=== PATIENT | male | born 1955 | race Caucasian/White ===

== ENCOUNTER 2020-10-12 21:00 | Inpatient (IN) | payer MEDICARE, OTHER, SELFPAY ==
[2020-10-12 21:01] VITALS: BP 142/84; PULSE 98; RESP 16; TEMP 36.7; O2SAT 96; BMI 25.0
[2020-10-12 21:19] VITALS: O2SAT 98
--- NOTE | 2020-10-12 21:53 | EKG12_ITS ---
Test Reason : ABD PAIN Blood Pressure : / mmHG Vent. Rate : 097 BPM Atrial Rate : 097 BPM P-R Int : 144 ms QRS Dur : 098 ms QT Int : 368 ms P-R-T Axes : 067 036 092 degrees QTc Int : 467 ms Sinus rhythm with Premature atrial complexes Possible Left atrial enlargement Inferior infarct , age undetermined Abnormal ECG Confirmed by MISBAH MAGALLON, GERALD ([id number]), mapping editor MINERVA COOMBS ([id number]) on 11/06/2020 8:20:29 AM Referred By: MARY Confirmed By:GERALD CRAWLEY MD
--- NOTE | 2020-10-12 21:55 | ED.DCSUM_ITS ---
History of Present Illness Chief Complaint: Cough Informant: Patient Onset: Weeks - 3 Activity at onset: - - gradual in onset Current Severity: Moderate Maximum Severity: Moderate Worsened by: Coughing, Exertion Relieved by: Rest Associated Symptoms: Clear sputum - occasionally, Cough Chest Pain: None Narrative: Patient states he has had occasionally productive cough, shortness of breath, occasional posttussive emesis, feeling fatigued all for about 3 weeks. He saw his PCP within the past week or 2, as an outpatient testing, he saw the physician at the ER at [place] this morning, states that his doctor told him he may have bronchitis, the ER doctor told him there was no way he could have bronchitis, he has no prescriptions from either 1 and no one tested him for Covid. He is here seeking a third opinion. He denies any leg pain, swelling, orthopnea. No loss of taste or smell. No known exposure to Covid cases. He has history of coronary disease and states he has many stents and takes Brilinta but no anticoagulants. He denies any pleuritic chest discomfort, or chest pain at all. - Past Medical History (1) CAD (coronary artery disease) Status: Chronic (2) Factor V Leiden Status: Chronic (3) Ischemic cardiomyopathy Status: Chronic (4) Paroxysmal atrial fibrillation Status: Chronic Past Medical History - Allergies and Home Meds Allergies/Adverse Reactions: Allergies No Known Allergies Allergy (Verified 10/12/20 21:04) Primary Care Physician: Keara Murphy DO [Primary Care Provider] - Surgical History: - - More than 20 coronary stents according to patient Lives: Alone, Spouse/ Significant Other Smoking Status: Never smoker Review of Systems General: Reports: Malaise. Denies: Chills, Fever, Sweats Eyes: Denies: Visual changes - bilaterally, Diplopia ENT: Denies: Bilateral ear pain, Rhinorrhea, Sore throat Cardiovascular: Denies: Chest pain, Palpitations Respiratory: Reports: Dyspnea, Cough, Sputum, Dyspnea on exertion. Denies: Orthopnea Gastrointestinal: Reports: Vomiting - Posttussive only. Denies: Abdominal pain, Nausea, Diarrhea, Melena, Hematochezia Genitourinary: Denies: Dysuria, Hematuria, Frequency Musculoskeletal: Denies: Myalgias, Swelling, Extremity Pain Skin: Denies: Rash, Wounds Neurological: Denies: Headache, Weakness, Numbness Physical Exam Vital Signs/Narrative: Vital Signs Temp Pulse Resp BP Pulse Ox 10/12/20 21:01 98.0 F 98 16 142/84 H 96 Inital Vital Signs reviewed: Yes General: Well nourished, Well developed, No Acute Distress Head: Normocephalic, Atraumatic Eyes: Perrl, EOMI ENT: Moist mucous membranes, No rhinorrhea Neck: Supple, Nontender, No lymphadenopathy Cardiovascular: Regular rate, Regular rhythm, No murmurs Respiratory: No distress, CTA bilaterally, Chest nontender Abdomen: Soft, Nontender, Nondistended, Normal bowel sounds Back: Nontender, Normal Inspection Extremities: Nontender, No edema. Negative for: Calf Tenderness Skin: Normal color, No rash, No Trauma Neurological: Alert, Oriented x3, Cranial nerves II-XII grossly intact, Normal Strength, Normal Sensation, Normal Gait Psychological: Normal affect, Normal Mood Diagnostic/Tx/Re-eval Impressions Chest X-Ray 10/12/20 22:10 IMPRESSION: No acute findings. Electronically Signed: Jennifer Brewer MD at 23:00 EST Tel , Service support , 10/12/20 22:10 Chest 1 View (Portable) [RAD] Stat Laboratory Results 10/12/20 10/12/20 10/12/20 22:35 22:35 22:35 WBC 4.9 RBC 5.00 Hgb 15.0 Hct 46.5 MCV 93.0 MCH 30.0 MCHC 32.3 RDW Std Deviation 43.3 RDW Coeff of Chris 12.7 Plt Count 160 MPV 9.6 Immature Gran % (Auto) 0.400 Neut % (Auto) 66.1 Lymph % (Auto) 26.8 [place] % (Auto) 6.1 Eos % (Auto) 0.4 Baso % (Auto) 0.2 Absolute Neuts (auto) 3.3 Absolute Lymphs (auto) 1.32 Nucleated RBC % 0 Sodium 136 Potassium 3.6 Chloride 102 Carbon Dioxide 25.0 Anion Gap 9 BUN 20 H Creatinine 1.66 H Estim Creat Clear Calc 42.92 Est GFR (MDRD) Af Amer 54 L Est GFR (MDRD) Non-Af 44 L BUN/Creatinine Ratio 12.0 Glucose 280 H Calcium 8.5 Total Bilirubin 0.70 AST 13 L ALT 15 L Alkaline Phosphatase 106 Troponin I 0.847 H* B-Natriuretic Peptide 757.5 H Total Protein 7.4 Albumin 3.5 Globulin 3.9 Albumin/Globulin Ratio 0.9 - Rhythm Strip Rhythm Strip: Sinus Rhythm Rate: 95 Ectopy: None - EKG Initial EKG Interpretation: Sinus Rhythm, No Acute Injury Pattern, Non-Specific ST Changes - diffusely, - - old inferior infarct Prior: No Prior - Medical Decision Making Patient very poor historian and has never been to this hospital according to available records. He was accessed via [employer] to view outside records, which include an abnormal troponin earlier today at 0.55, now 0.8 here, and he has a history of factor V Leiden and paroxysmal atrial fibrillation which is likely why he is on Xarelto. He had a nuclear stress test in July that showed an old infarct and a small area that appeared to be a branch of mild acute ischemia but was otherwise unremarkable with an EF of 35% approximately. He currently is having no chest discomfort. We changed his outpatient Covid to a rapid which is still pending. I discussed with cardiology. He advised cycling enzymes, giving him aspirin which is done in the ER, holding Xarelto, and they will consult in the morning. ED Disposition - Plan for ED Patient: Disposition: Acute Care Hospital [facility] Diagnosis: Elevated troponin I level, Dyspnea Referrals: Keara Murphy DO [Primary Care Provider] -
--- NOTE | 2020-10-12 21:59 | ED.RN ---
NO OLD EKGS IN MUSE
[2020-10-12 22:00] VITALS: BP 112/79; PULSE 99; RESP 35; TEMP 36.5; O2SAT 94
--- NOTE | 2020-10-12 22:10 | RAD_ITS ---
STUDY: X-RAY CHEST REASON FOR EXAM: Male, 65 years old. cough TECHNIQUE: Single AP portable view of the chest. COMPARISON: None. FINDINGS: The lungs are clear and expanded. There is no demonstrated pleural abnormality. Normal size heart. Left coronary stent is noted. Normal mediastinum and hollie. Normal visualized pulmonary arteries. Normal visualized aortic arch and descending thoracic aorta. Normal visualized thoracic spine. Normal visualized ribs, clavicles, and shoulders. There is no demonstrated abnormality of the visualized soft tissue structures of the upper abdomen. RAD/Chest 1 View (Portable) IMPRESSION: No acute findings. Electronically Signed: Jennifer Brewer MD at 23:00 EST Tel , Service support ,
[2020-10-12 22:46] LABS: Absolute Lymphocyte Count 1.32 X10^3/uL (0.83-4.51); Absolute Neutrophil Count 3.3 X10^3/uL (2.0-7.7); Basophil# 0.01 X10^3/uL; Basophil% 0.2 % (0-1); Eosinophil# 0.02 X10^3/uL; Eosinophils% 0.4 % (0-5); Hematocrit 46.5 % (40-54); Lymphocyte # 1.32 X10^3/ul (4.0); Lymphocyte % 26.8 % (19-41); Mean Corp Hgb Conc 32.3 g/dL (32-36); Mean Platelet Vol. 9.6 fl (6.2-12.0); Monocyte% 6.1 % (0-10); NRBC Flagged by Analyzer 0 % (0-5); Neutrophil # 3.25 X10^3/uL (2.7-7.7); Neutrophil % 66.1 % (47-70); Platelet Count 160 K/mm3 (150-450); RBC Distribution Width CV 12.7 % (11.6-14.6); RBC Distribution Width SD 43.3 fl (35.1-43.9); White Blood Count 4.9 K/mm3 (4.4-11.0)
[2020-10-12 23:00] VITALS: BP 132/80; PULSE 99; RESP 36; TEMP 36.7; O2SAT 93
[2020-10-12 23:08] LABS: BNP,B-Type NATRIURETIC PEPTIDE 757.5 pg/mL (0-100)
[2020-10-12 23:31] LABS: ALB/GLOB Ratio 0.9 RATIO (0.9-2.4); AST(SGOT) 13 U/L (15-37); Alanine Aminotransfer ALT/SGPT 15 U/L (16-61); Albumin, Serum 3.5 g/dL (3.2-5.0); Alkaline Phosphatase 106 U/L (45-117); Anion Gap 9 (5-15); BUN 20 mg/dL (7-18); Calcium,Total 8.5 mg/dL (8.5-10.1); Chloride 102 mmol/L (98-107); Creatinine, Serum 1.66 mg/dL (0.70-1.30); EST Glomerular Filtration Rate 44 mL/min (>60); Est Glom Filt Rate - Afr Amer 54 mL/min (>60); Estimated Creatinine Clearance 42.92 ml/min; Globulin 3.9 g/dL (2.2-4.2); Glucose 280 mg/dL (74-106); Potassium 3.6 mmol/L (3.5-5.1); Protein, Total 7.4 g/dL (6.4-8.2); Sodium Level 136 mmol/L (136-145)
[2020-10-13] VITALS (22 sets, daily range): BP systolic 85–136; BP diastolic 53–89; PULSE 64–159; RESP 18–32; TEMP 35.6–38; O2SAT 92–100; BMI 30.2
--- NOTE | 2020-10-13 00:01 | PCM.HP.STD ---
Problem List (1) SARS (severe acute respiratory syndrome) Status: Acute (2) COVID-19 Status: Acute (3) Heart failure Status: Acute (4) CAD (coronary artery disease) Status: Chronic (5) Elevated troponin I level Status: Acute (6) Dyspnea Status: Acute (7) Factor V Leiden Status: Chronic (8) Ischemic cardiomyopathy Status: Chronic (9) Paroxysmal atrial fibrillation Status: Chronic History of Present Illness Date of Admission: 10/13/20 Chief Complaint: SOB The patient is a 65 year old M with a significant history paroxysmal A. fib; factor V Leiden deficiency; activated protein C resistance; CAD status post 29 coronary stent; two stents in cerebral vessels; CKD stage III; sleep apnea; and diabetes mellitus who presents emergency department with 3 months history of persistent shortness of breath. His shortness of breath is with mild exertion. He reports transiently blacking out because of shortness of breath. Associated with his symptoms as a nonproductive cough for about 4 weeks. Further patient has orthopnea; and fatigue. He denies paroxysmal nocturnal dyspnea. He denies any swelling or change in weight. Patient of had to a Covid test with the last test about a month ago. Earlier on the same day of presentation patient went to [facility]. He was unsatisfied with the care there ([facility]) and also unhappy that a Covid test was not done so he came to our emergency department. Reportedly patient was supposed to have his gallbladder taken out but he was told that it is too risky for him to do the operation. Past Medical History Past Medical History (Chronic Problems): Chronic Problems CAD (coronary artery disease) (Chronic) Factor V Leiden (Chronic) Ischemic cardiomyopathy (Chronic) Paroxysmal atrial fibrillation (Chronic) Allergies No Known Allergies Allergy (Verified 10/12/20 21:04) Home Medications: Ambulatory Orders Medication Instructions Recorded Atorvastatin Calcium [Lipitor] 80 mg PO QHS 10/12/20 Metoprolol(XL)Succ [Toprol Xl 25 mg PO DAILY 10/12/20 (Beta Shannon)] Ranolazine [Ranexa] 1,000 mg PO BID 10/12/20 Rivaroxaban [Xarelto] 20 mg PO DAILY 10/12/20 Sacubitril/Valsartan 24/26 mg 0.5 tab PO BID 10/12/20 [Entresto 24 mg-26 mg Tablet] Ticagrelor [Brilinta] 90 mg PO BID 10/12/20 Insulin Glargine,Hum.rec.anlog 50 units [place] QHS 10/13/20 [Lantus] Insulin Lispro [Humalog KwikPen] See Protocol MD ACHS 10/13/20 Surgical History: - - 29 coronary stents in the past and 2 stents in cerebral vessel Lives: Alone, Spouse/ Significant Other Smoking Status: Never smoker Tobacco Use: Non-smoker - *Family History Maternal History Items: - - His mother was an alcoholic. Does not know any further maternal history. Paternal History Items: - - Denies knowledge of paternal medical history Review of Systems Constitutional: Reports: Anorexia, Chills, Malaise, Weakness, Fatigue. Denies: Fever, Weight Change HEENT: Denies: Head Aches, Sinus Congestion, Sinus Drainage Cardiovascular: Denies: Chest Pain, Palpitations Respiratory: Reports: Cough, Shortness of breath upon exertion Gastrointestinal: Denies: Abdominal Pain, Nausea, Vomiting Genitourinary: Denies: Dysuria Musculoskeletal: Denies: Joint Pain, Joint Tenderness Skin: Denies: Rash, Wounds Neurological: Denies: Numbness, Tingling, Focal weakness Psychiatric: Denies: Anxiety, Depression, Homicidal Ideations, Suicidal Ideations Hematologic/ Lymphatic: Denies: Easy Bruising, Easy Bleeding VTE Information - Inpt Only VTE Present on Admission: No VTE Mechan Device Prophylaxis: None VTE Pharm Prophylaxis ordered?: Yes Patient Problems: Active and Suspected Problems Elevated troponin I level (Acute) Dyspnea (Acute) SARS (severe acute respiratory syndrome) (Acute) COVID-19 (Acute) Heart failure (Acute) - Physical Exam Vitals/I&O's: Vital Signs Temp Pulse Resp BP Pulse Ox 98.1 F 99 36 H 132/80 H 93 10/12/20 23:00 10/12/20 23:00 10/12/20 23:00 10/12/20 23:00 10/12/20 23:00 Oxygen Delivery Method Room Air Weight: 74.843 kg Body Mass Index (BMI) 25.0 General: Alert, Oriented x3, Cooperative HEENT: Atraumatic, PERRLA, EOMI, Normocephalic Neck: Supple, No JVD, Negative Carotid Bruits Lungs: Clear to auscultation, Short of Breath, Tachypneic, Using Accessory Muscles, - - Conversational dyspnea Cardiovascular: Regular rate, Normal S1, Normal S2, No murmurs Abdomen: Bowel Sounds Present, Soft, Non Tender Extremities: No edema, Capillary Refill Less than 3 Seconds Skin: No rashes, No breakdown Musculoskeletal: No Tenderness to Palpation of Joints or Extremities Neurological: Cranial nerves II-XII grossly intact Psych/Mental Status: Anxious Laboratory Results 10/12/20 21:56: COVID-19 (CORTEZ) Pending 10/12/20 22:35: WBC 4.9, RBC 5.00, Hgb 15.0, Hct 46.5, MCV 93.0, MCH 30.0, MCHC 32.3, RDW Std Deviation 43.3, RDW Coeff of Chris 12.7, Plt Count 160, MPV 9.6, Immature Gran % (Auto) 0.400, Neut % (Auto) 66.1, Lymph % (Auto) 26.8, [place] % (Auto) 6.1, Eos % (Auto) 0.4, Baso % (Auto) 0.2, Absolute Neuts (auto) 3.3, Absolute Lymphs (auto) 1.32, Nucleated RBC % 0 10/12/20 22:35: Sodium 136, Potassium 3.6, Chloride 102, Carbon Dioxide 25.0, Anion Gap 9, BUN 20 H, Creatinine 1.66 H, Estim Creat Clear Calc 42.92, Est GFR (MDRD) Af Amer 54 L, Est GFR (MDRD) Non-Af 44 L, BUN/Creatinine Ratio 12.0, Glucose 280 H, Calcium 8.5, Total Bilirubin 0.70, AST 13 L, ALT 15 L, Alkaline Phosphatase 106, Troponin I 0.847 H*, Total Protein 7.4, Albumin 3.5, Globulin 3.9, Albumin/Globulin Ratio 0.9 10/12/20 22:35: B-Natriuretic Peptide 757.5 H Assessment/Plan All Active Problems Elevated troponin I level (Acute) Dyspnea (Acute) SARS (severe acute respiratory syndrome) (Acute) COVID-19 (Acute) Heart failure (Acute) SARS COVID-19 Rapid antigen at emergency department was positive. We'll get a PCR as his symptoms is been going on for 3 months. Impression of chest x-ray by radiologist: No acute findings. Actual chest x-ray was independently interpreted: Mildly enlarged cardiac silhouette hold. Cephalization with engorgement of pulmonary vessels and mild opacity right lower lung field. D-dimer returned mildly elevated. Because of elevated troponin and patient with multiple stent emergent department doctor discussed the case with a threshing department supervisor who recommended that Xarelto be discontinued. Will start patient on heparin drip while off Xarelto. Of note patient has a history of activated protein C resistance; and factor V Leiden deficiency.. Procalcitonin, strep pneumonia antigen and Legionella urine antigen ordered. Decadron IV x1 and p.o. daily ordered. Consider infectious disease consult. Tylenol for fever and Mucinex for cough ordered. Acute exacerbation of systolic heart failure Review of community records on [facility] that patient had a cardiac stress test on 08/09/2020. The cardiac stress test was remarkable for left ventricular ejection fraction estimated at 31% at rest and 25% post stress With his 3 months as symptoms is possible the patient is in acute exacerbation of heart failure. Daily weights ordered. Strict intake and output. Fluid restriction of 1,500 MLS per day. Lasix 40 mg IV x1 and 20 mg IV twice daily. Supplement potassium. Metoprolol continued Entresto continued Non-ST elevation SC His troponin at outside hospital ED earlier in the day of presentation was 0.55. His troponin at our hospital was 0.847 on presentation. Will trend troponin. Cardiology consult. We will keep patient n.p.o. Brilinta continued. Per cardiology recommendation aspirin 324 mg was given the emergency department. Daily baby aspirin ordered. Ranexa continued A. fib with RVR Because of the ED presentation meds home metoprolol. Metoprolol 25 mg p.o. x1. Cardizem 10 mg IV x1. Continue metoprolol 25 mg p.o. daily. CKD stage III His creatinine on same day of presentation at outside hospital was 1.27. His creatinine on presentation at our hospital was 1.66. His creatinine on 08/08/2020 was 1.53. Likely cardiorenal syndrome. BUN is 20. Prerenal injury from intravascular dehydration. Started on Lasix. Trend BMP. Adjust Lasix as necessary. DM Blood glucose elevated Adjust home basal and correction scale insulin while n.p.o. DVT prophylaxis Heparin drip as above. Inpatient E&M: 83535 Init Hosp L3
[2020-10-13] MEDS: Aspirin 81 MG TAB.CHEW 324 MG PO (00:12)
--- NOTE | 2020-10-13 01:17 | EKG12_ITS ---
Test Reason : CP ADMIT Blood Pressure : / mmHG Vent. Rate : 087 BPM Atrial Rate : 087 BPM P-R Int : 156 ms QRS Dur : 102 ms QT Int : 424 ms P-R-T Axes : -02 -09 103 degrees QTc Int : 510 ms Normal sinus rhythm Inferior infarct , age undetermined Prolonged QT Poor R wave progression Abnormal ECG Confirmed by MISBAH MAGALLON, GERALD ([id number]), editorial assistant GAVIN CORRAL ([id number]) on 10/18/2020 1:16:17 PM Referred By: DR PADILLA Confirmed By:GERALD CRAWLEY MD
[2020-10-13] MEDS: Furosemide 40 MG/4 ML Vial IV (01:28)
[2020-10-13] MEDS: 0.9% Saline Lock 10 ML Syringe IV ×6 (01:28→23:05)
[2020-10-13] MEDS: Acetaminophen 325 MG Tablet 650 MG PO (01:28)
[2020-10-13 01:40] LABS: D-Dimer Quantitative (DVT/PE) 0.85 FEU/ug/m (0.27-0.49)
[2020-10-13 01:48] LABS: Procalcitonin 0.06 ng/mL (0.00-0.09)
[2020-10-13] MEDS: dexAMETHasone 10 MG/ML Vial 6 MG IV (03:00)
[2020-10-13] MEDS: Metoprolol(XL)Succ 25 MG Tablet PO ×2 (03:23→13:41)
--- NOTE | 2020-10-13 03:35 | EKG12_ITS ---
Test Reason : AFIB Blood Pressure : / mmHG Vent. Rate : 118 BPM Atrial Rate : 394 BPM P-R Int : 000 ms QRS Dur : 104 ms QT Int : 392 ms P-R-T Axes : 000 001 111 degrees QTc Int : 549 ms Atrial fibrillation Inferior infarct , age undetermined Poor R wave progression Nonspecific T wave abnormality Abnormal ECG Confirmed by MISBAH MAGALLON, GERALD ([id number]), editor index GAVIN CORRAL ([id number]) on 10/18/2020 1:17:05 PM Referred By: DR PADILLA Confirmed By:GERALD CRAWLEY MD
[2020-10-13] MEDS: dilTIAZem 25 MG/5 ML Vial 10 MG IV BOLUS (04:00)
[2020-10-13] MEDS: guaiFENesin 1,200 MG Tablet 1200 MG PO ×3 (04:04→23:04)
[2020-10-13] MEDS: Heparin Injection (Vial) 5,000 UNIT/ML VIAL 6000 UNIT IV (04:11)
[2020-10-13] MEDS: HEPARIN/D5w 25,000 UNITS 25,000 UNITS/250 ML IV.SOLN. 12 UNITS IV (04:11)
[2020-10-13 06:12] LABS: Absolute Lymphocyte Count 1.01 X10^3/uL (0.83-4.51); Absolute Neutrophil Count 3.5 X10^3/uL (2.0-7.7); Eosinophil# 0.01 X10^3/uL; Eosinophils% 0.2 % (0-5); Hematocrit 46.7 % (40-54); Hemoglobin 15.1 g/dL (13.0-16.5); Lymphocyte # 1.01 X10^3/ul (4.0); Lymphocyte % 20.9 % (19-41); Mean Corp Hgb Conc 32.3 g/dL (32-36); Mean Corpuscular Hgb 29.9 pg (27.0-32.0); Mean Corpuscular Volume 92.5 fL (80-94); Mean Platelet Vol. 9.5 fl (6.2-12.0); Monocyte# 0.28 X10^3/uL; Monocyte% 5.8 % (0-10); NRBC Flagged by Analyzer 0 % (0-5); Neutrophil # 3.52 X10^3/uL (2.7-7.7); Neutrophil % 72.7 % (47-70); Platelet Count 151 K/mm3 (150-450); RBC Distribution Width CV 12.7 % (11.6-14.6); RBC Distribution Width SD 43.6 fl (35.1-43.9); Red Blood Count 5.05 M/mm3 (4.6-6.2); White Blood Count 4.8 K/mm3 (4.4-11.0)
[2020-10-13] MEDS: Insulin Lispro 100 UNIT/ML INSULN.PEN SC ×3 (06:50→18:00)
[2020-10-13 07:10] LABS: Bedside Glucose 404 mg/dL (70-110)
[2020-10-13 09:25] LABS: ALB/GLOB Ratio 0.9 RATIO (0.9-2.4); AST(SGOT) 11 U/L (15-37); Alanine Aminotransfer ALT/SGPT 13 U/L (16-61); Albumin, Serum 3.3 g/dL (3.2-5.0); Alkaline Phosphatase 102 U/L (45-117); Anion Gap 13 (5-15); BUN 22 mg/dL (7-18); BUN/Creat Ratio 13.3 RATIO (10-20); Calcium,Total 8.3 mg/dL (8.5-10.1); Chloride 102 mmol/L (98-107); Creatinine, Serum 1.66 mg/dL (0.70-1.30); EST Glomerular Filtration Rate 44 mL/min (>60); Est Glom Filt Rate - Afr Amer 54 mL/min (>60); Estimated Creatinine Clearance 42.92 ml/min; Globulin 3.7 g/dL (2.2-4.2); Glucose 389 mg/dL (74-106); Potassium 3.8 mmol/L (3.5-5.1); Sodium Level 135 mmol/L (136-145)
--- NOTE | 2020-10-13 10:14 | PCM.CONS.C ---
Reason for Consult Date of Consultation: 10/13/20 Reason for Consultation: Elevated T-I History of Present Illness: The patient is a 65 year old M [who presented to the hospital with 3 weeks of shortness of breath.He has prior history of coronary artery disease status post multiple stents. Due to his Covid positive diagnosis history was obtained from the medical records and also from the patient over the phone. I did not see the patient in person or do a physical examination.Patient follows with an outside motorized squad commanding officer. He was found to be Covid positive and also his D-dimer and troponin were elevated. His troponin is already coming down. Patient states that prior to PCI in the past he mainly had shortness of breath. However this morning he is feeling better. He did go into A. fib and then converted to sinus rhythm this morning. Overall patient states that he is feeling better than at the time of his admission.] Past Medical History Allergies/Adverse Reactions: Allergies No Known Allergies Allergy (Verified 10/12/20 21:04) Home Medications: Ambulatory Orders Medication Instructions Recorded Atorvastatin Calcium [Lipitor] 80 mg PO QHS 10/12/20 Metoprolol(XL)Succ [Toprol Xl 25 mg PO DAILY 10/12/20 (Beta Shannon)] Ranolazine [Ranexa] 1,000 mg PO BID 10/12/20 Rivaroxaban [Xarelto] 20 mg PO DAILY 10/12/20 Sacubitril/Valsartan 24/26 mg 0.5 tab PO BID 10/12/20 [Entresto 24 mg-26 mg Tablet] Ticagrelor [Brilinta] 90 mg PO BID 10/12/20 Furosemide [Lasix] 20 mg PO DAILY 10/13/20 Insulin Glargine,Hum.rec.anlog 50 units [place] QHS 10/13/20 [Lantus] Insulin Lispro [Humalog KwikPen] See Protocol [place] ACHS 10/13/20 Past Medical History (Chronic Problems): Chronic Problems CAD (coronary artery disease) (Chronic) Factor V Leiden (Chronic) Ischemic cardiomyopathy (Chronic) Paroxysmal atrial fibrillation (Chronic) Surgical History: - - 29 coronary stents in the past and 2 stents in cerebral vessel - *Family History Maternal History Items: - - His mother was an alcoholic. Does not know any further maternal history. Paternal History Items: - - Denies knowledge of paternal medical history Lives: Alone, Spouse/ Significant Other Smoking Status: Never smoker Tobacco Use: Non-smoker Subjectve: Consultation was provided reviewing information in the medical records and talking to the patient over the phone. Physical examination was not performed. Objective: Vital Signs Temp Pulse Resp BP Pulse Ox 96.1 F L 73 26 H 96/64 100 10/13/20 07:04 10/13/20 07:04 10/13/20 07:04 10/13/20 07:04 10/13/20 07:04 Oxygen Flow Rate (L/min) 2 Oxygen Delivery Method Nasal Cannula Weight: 196 lb 3.382 oz Body Mass Index (BMI) 30.2 Intake and Output for Last 24 Hours 10/11/20 10/12/20 10/13/20 23:59 23:59 23:59 Intake Total 370 / 370 Output Total 400 / 400 Balance -30 / -30 10/12/20 22:35: WBC 4.9, RBC 5.00, Hgb 15.0, Hct 46.5, MCV 93.0, MCH 30.0, MCHC 32.3, Plt Count 160, MPV 9.6, Immature Gran % (Auto) 0.400, Neut % (Auto) 66.1, Lymph % (Auto) 26.8, [place] % (Auto) 6.1, Eos % (Auto) 0.4, Baso % (Auto) 0.2, Absolute Neuts (auto) 3.3, Nucleated RBC % 0 10/12/20 22:35: Sodium 136, Potassium 3.6, Chloride 102, Carbon Dioxide 25.0, Anion Gap 9, BUN 20 H, Creatinine 1.66 H, Est GFR (MDRD) Af Amer 54 L, Est GFR (MDRD) Non-Af 44 L, BUN/Creatinine Ratio 12.0, Glucose 280 H, Calcium 8.5, Total Bilirubin 0.70, Troponin I 0.847 H* 10/12/20 22:35: B-Natriuretic Peptide 757.5 H 10/12/20 22:35: D-Dimer Quant (PE/DVT) 0.85 H* 10/12/20 22:35: APTT 28.0 10/13/20 02:50: Troponin I 0.751 H* 10/13/20 05:50: WBC 4.8, RBC 5.05, Hgb 15.1, Hct 46.7, MCV 92.5, MCH 29.9, MCHC 32.3, Plt Count 151, MPV 9.5, Immature Gran % (Auto) 0.400, Neut % (Auto) 72.7 H, Lymph % (Auto) 20.9, [place] % (Auto) 5.8, Eos % (Auto) 0.2, Baso % (Auto) 0.0, Absolute Neuts (auto) 3.5, Nucleated RBC % 0 10/13/20 05:50: Sodium 135 L, Potassium 3.8, Chloride 102, Carbon Dioxide 20.0 L, Anion Gap 13, BUN 22 H, Creatinine 1.66 H, Est GFR (MDRD) Af Amer 54 L, Est GFR (MDRD) Non-Af 44 L, BUN/Creatinine Ratio 13.3, Glucose 389 H, Calcium 8.3 L, Total Bilirubin 0.70 10/13/20 05:50: Troponin I 0.770 H* Rhythm: EKG: ECHO: Stress Test: Cardiac Cath: PCI: CT Surgery: Holter monitor: EPS: PPM: CXR: Chest CT Scan: Assessment/Plan 1. Elevated troponin: This could be related to progression of his underlying CAD or Covid or combination of the 2. In addition patient's D-dimer is also elevated. Prior to PCI in the past patient apparently had more shortness of breath and chest pain. However his chest shortness of breath has improved since admission. His troponin is also trending down. I think will be reasonable to treat this medically without proceeding with coronary angiography at this time. We can consider coronary angiography in about 2 weeks if patient is still symptomatic. We can stop his aspirin and restart Xarelto and Brilinta. 2. Atrial fibrillation: Continue metoprolol and Xarelto. Patient is currently in sinus rhythm. 3. Factor V [place]: Continue Xarelto 4. LV dysfunction: Patient shortness of breath is better. I will defer the timing of switching from IV Lasix to p.o. Lasix to the patient's primary team. Continue Entresto and Toprol-XL.
[2020-10-13 10:48] LABS: Partial Thromboplast Time 128.8 Seconds (24.1-36.2)
[2020-10-13] MEDS: SACUBITRIL/VALSARTAN 24/26 MG TABLET 0.5 EACH PO ×2 (10:52→23:04)
[2020-10-13] MEDS: Furosemide 20 MG/2 ML VIAL IV ×2 (10:53→18:25)
[2020-10-13] MEDS: Ranolazine 500 MG Tablet 1000 MG PO ×2 (10:53→23:03)
[2020-10-13] MEDS: Aspirin E.C. 81 MG Tablet PO (10:53)
[2020-10-13] MEDS: TICAGRELOR 90 MG TABLET PO ×2 (10:53→23:01)
[2020-10-13 12:46] LABS: Bedside Glucose 497 mg/dL (70-110)
--- NOTE | 2020-10-13 13:15 | CASEMGMT ---
LIZETT HOLCOMB ASSESSMENT COVID-19 +. Pt in isolation precautions. RN AICHA placed call to pt's room for initial transition planning/care coordination assessment. LIZETT HOLCOMB introduced self and role at [facility]. Pt voices understanding and consents to assessment at this time. Pt is A/O at this time and answers all questions appropriately. Care providers, pharmacy, and demographics verified/updated at this time. PCP: Dr Murphy Specialists: Dr Caputo--palliative care nurse in [place], [place] Preferred Pharmacy: [facility] Insurance: [facility], [place] [employer] [place] (not listed on demographics). Call placed to [facility] and made aware pt states has [employer] [place] as secondary insurance. She states she will contact pt to get further info from him. Prescription Benefit: Yes. [employer] Living Will/HPOA: Pt does not currently have LW/HCPOA and declines info at this time. Pt made aware that he can contact SW as an out-pt and make appt in the future if he decides he would like to talk with someone about this or would like to utilize [facility] social work for advanced directive completion. LNOK: 4 kids. Daughter, Kaia Szymanski, listed on demographics Living Arrangements: Lives alone in one-story home w/no steps to enter. Independent w/ADL's and IADL's. Pt states his daughter can get his groceries/supplies, medications as needed while he is quarantining. Transportation: Pt states drives self and states no transportation concerns at this time. Daughter, Kaia, will take him home @ discharge. DME: Denies using any DME and denies needs. No home O2. Pt states does not have preference of DME company if needs O2 @ discharge. HHC/SNF: No history of either and no needs identified. Pt wishes to return home and states has no concerns with going home at time of discharge. CM to follow for home oxygen needs and any discharge planning/needs. Pt voices no concerns/needs at this time. Advised pt to ask for CM if any questions/concerns/needs arise. Voices understanding. PLAN: Home Follow for Home O2 needs at discharge. Green sheet placed on chart w/Home O2 set up instructions if pt qualifie for O2 @ dc. Ariana BARRIENTOS RN, CM
--- NOTE | 2020-10-13 15:57 | CON.PCM_ITS ---
Problem List (1) COVID-19 Status: Acute Reason for Consult: covid Consulted by: Dr. Saez History of Present Illness: The patient is a 65 year old M with c/o 3 months of dyspnea, then about 1.5 weeks of worsening cough, dyspnea, diarrhea, not feeling well, loss of appetite. Lives alone, no sick contacts. Admitted here, covid (+), started on hep gtt, dex, and remdesivir. Full ROS performed and neg except as noted above. - Medical History Past Medical History (Chronic Problems): Chronic Problems CAD (coronary artery disease) (Chronic) Factor V Leiden (Chronic) Ischemic cardiomyopathy (Chronic) Paroxysmal atrial fibrillation (Chronic) Allergies/Adverse Reactions: Allergies No Known Allergies Allergy (Verified 10/12/20 21:04) Home Medications: Ambulatory Orders Medication Instructions Recorded Atorvastatin Calcium [Lipitor] 80 mg PO QHS 10/12/20 Metoprolol(XL)Succ [Toprol Xl 25 mg PO DAILY 10/12/20 (Beta Shannon)] Ranolazine [Ranexa] 1,000 mg PO BID 10/12/20 Rivaroxaban [Xarelto] 20 mg PO DAILY 10/12/20 Sacubitril/Valsartan 24/26 mg 0.5 tab PO BID 10/12/20 [Entresto 24 mg-26 mg Tablet] Ticagrelor [Brilinta] 90 mg PO BID 10/12/20 Furosemide [Lasix] 20 mg PO DAILY 10/13/20 Insulin Glargine,Hum.rec.anlog 50 units SC QHS 10/13/20 [Lantus] Insulin Lispro [Humalog KwikPen] See Protocol TX ACHS 10/13/20 - Social History Tobacco Use: non-smoker Vital Signs Temp Pulse Resp BP Pulse Ox 97.9 F 71 18 114/69 95 10/13/20 13:31 10/13/20 13:41 10/13/20 13:31 10/13/20 13:41 10/13/20 15:30 Oxygen Flow Rate (L/min) 2 Oxygen Delivery Method Nasal Cannula Weight: 89 kg Body Mass Index (BMI) 30.2 Microbiology Past 72 Hours 10/13/20 04:12 Respiratory Panel (PCR) - Final Mucosa - Nose 10/13/20 02:45 Legionella Antigen - Final Interface Orders 10/13/20 02:45 Streptococcus pneumoniae Antigen (M - Final Interface Orders 10/12/20 23:59 SARS-CoV-2 Antigen (Rapid) - Final Mucosa - Nose SARS-CoV-2 (COVID 19) Laboratory Tests Past 24 Hrs 10/12/20 10/12/20 10/12/20 21:56 22:35 22:35 WBC 4.9 RBC 5.00 Hgb 15.0 Hct 46.5 MCV 93.0 MCH 30.0 MCHC 32.3 RDW Std Deviation 43.3 RDW Coeff of Chris 12.7 Plt Count 160 MPV 9.6 Immature Gran % (Auto) 0.400 Neut % (Auto) 66.1 Lymph % (Auto) 26.8 [place] % (Auto) 6.1 Eos % (Auto) 0.4 Baso % (Auto) 0.2 Absolute Neuts (auto) 3.3 Absolute Lymphs (auto) 1.32 Nucleated RBC % 0 APTT D-Dimer Quant (PE/DVT) Sodium 136 Potassium 3.6 Chloride 102 Carbon Dioxide 25.0 Anion Gap 9 BUN 20 H Creatinine 1.66 H Estim Creat Clear Calc 42.92 Est GFR (MDRD) Af Amer 54 L Est GFR (MDRD) Non-Af 44 L BUN/Creatinine Ratio 12.0 Glucose 280 H Calcium 8.5 Total Bilirubin 0.70 AST 13 L ALT 15 L Alkaline Phosphatase 106 Troponin I 0.847 H* B-Natriuretic Peptide Total Protein 7.4 Albumin 3.5 Globulin 3.9 Albumin/Globulin Ratio 0.9 Procalcitonin COVID-19 ([facility]) Cancelled 10/12/20 10/12/20 10/12/20 22:35 22:35 22:35 WBC RBC Hgb Hct MCV MCH MCHC RDW Std Deviation RDW Coeff of Chris Plt Count MPV Immature Gran % (Auto) Neut % (Auto) Lymph % (Auto) [place] % (Auto) Eos % (Auto) Baso % (Auto) Absolute Neuts (auto) Absolute Lymphs (auto) Nucleated RBC % APTT D-Dimer Quant (PE/DVT) 0.85 H* Sodium Potassium Chloride Carbon Dioxide Anion Gap BUN Creatinine Estim Creat Clear Calc Est GFR (MDRD) Af Amer Est GFR (MDRD) Non-Af BUN/Creatinine Ratio Glucose Calcium Total Bilirubin AST ALT Alkaline Phosphatase Troponin I B-Natriuretic Peptide 757.5 H Total Protein Albumin Globulin Albumin/Globulin Ratio Procalcitonin 0.06 COVID-19 ([facility]) 10/12/20 10/13/20 10/13/20 22:35 02:50 04:12 WBC RBC Hgb Hct MCV MCH MCHC RDW Std Deviation RDW Coeff of Chris Plt Count MPV Immature Gran % (Auto) Neut % (Auto) Lymph % (Auto) [place] % (Auto) Eos % (Auto) Baso % (Auto) Absolute Neuts (auto) Absolute Lymphs (auto) Nucleated RBC % APTT 28.0 D-Dimer Quant (PE/DVT) Sodium Potassium Chloride Carbon Dioxide Anion Gap BUN Creatinine Estim Creat Clear Calc Est GFR (MDRD) Af Amer Est GFR (MDRD) Non-Af BUN/Creatinine Ratio Glucose Calcium Total Bilirubin AST ALT Alkaline Phosphatase Troponin I 0.751 H* B-Natriuretic Peptide Total Protein Albumin Globulin Albumin/Globulin Ratio Procalcitonin COVID-19 ([facility]) Detected 10/13/20 10/13/20 10/13/20 05:50 05:50 05:50 WBC 4.8 RBC 5.05 Hgb 15.1 Hct 46.7 MCV 92.5 MCH 29.9 MCHC 32.3 RDW Std Deviation 43.6 RDW Coeff of Chris 12.7 Plt Count 151 MPV 9.5 Immature Gran % (Auto) 0.400 Neut % (Auto) 72.7 H Lymph % (Auto) 20.9 [place] % (Auto) 5.8 Eos % (Auto) 0.2 Baso % (Auto) 0.0 Absolute Neuts (auto) 3.5 Absolute Lymphs (auto) 1.01 Nucleated RBC % 0 APTT D-Dimer Quant (PE/DVT) Sodium 135 L Potassium 3.8 Chloride 102 Carbon Dioxide 20.0 L Anion Gap 13 BUN 22 H Creatinine 1.66 H Estim Creat Clear Calc 42.92 Est GFR (MDRD) Af Amer 54 L Est GFR (MDRD) Non-Af 44 L BUN/Creatinine Ratio 13.3 Glucose 389 H Calcium 8.3 L Total Bilirubin 0.70 AST 11 L ALT 13 L Alkaline Phosphatase 102 Troponin I 0.770 H* B-Natriuretic Peptide Total Protein 7.0 Albumin 3.3 Globulin 3.7 Albumin/Globulin Ratio 0.9 Procalcitonin COVID-19 ([facility]) 10/13/20 10:11 WBC RBC Hgb Hct MCV MCH MCHC RDW Std Deviation RDW Coeff of Chris Plt Count MPV Immature Gran % (Auto) Neut % (Auto) Lymph % (Auto) [place] % (Auto) Eos % (Auto) Baso % (Auto) Absolute Neuts (auto) Absolute Lymphs (auto) Nucleated RBC % APTT 128.8 H* D-Dimer Quant (PE/DVT) Sodium Potassium Chloride Carbon Dioxide Anion Gap BUN Creatinine Estim Creat Clear Calc Est GFR (MDRD) Af Amer Est GFR (MDRD) Non-Af BUN/Creatinine Ratio Glucose Calcium Total Bilirubin AST ALT Alkaline Phosphatase Troponin I B-Natriuretic Peptide Total Protein Albumin Globulin Albumin/Globulin Ratio Procalcitonin COVID-19 ([facility]) - Other Studies Radiology: [] reviewed Other Studies: [] Route of nutrition/ use of supplements: [] Nutritional Intake: [] IV Site: [] Szymanski Catheter: [] - Physical Exam General: Alert, Oriented x3, Cooperative HEENT: Atraumatic, PERRLA, EOMI Neck: Supple, No Nodes Lungs: Diminished Cardiovascular: Regular rate, Regular Rhythm Abdomen: Soft, Non Tender, Non-Distended Extremities: No edema Skin: No rashes IV Site: Peripheral, without redness Musculoskeletal: No Tenderness to Palpation of Joints or Extremities Neurological: Cranial nerves II-XII grossly intact - Assessment/Plan Antibiotics: [] Assessment/Plan: [] Active and Suspected Problems Elevated troponin I level (Acute) Dyspnea (Acute) SARS (severe acute respiratory syndrome) (Acute) COVID-19 (Acute) Heart failure (Acute) covid with hypoxia - dex, remdesivir, hep gtt. Per cardiology, ok to change back to xarelto. Will order daily lab monitoring while on remdesivir. D-dimer at 0.8. Will follow, thank you
--- NOTE | 2020-10-13 17:10 | PCM.HOSP.N ---
Hospitalist Note Pt was admitted after MN for SOB and a nonproductive cough that he has had for about 4 weeks. He had a negative COVID test about 1 month ago. COVID was done here and +. PCR was ordered. ID has seen and started on Dex and Remdesivir. He is on 2 L nasal cannula and SpO2 is 95%. He had a troponin elevation with the peak at 0.847 and has since trended down. He was seen by Cards and the plan is to treat him medically for the time being and consider LHC in 2 weeks if pt is still symptomatic. His Xarelto was restarted and we continued his Brilinta. ASA was d/c. His blood sugars are elevated with the dex and I increased his Lantus to 35 u at hs and made his SSI more aggressive. Continue IV lasix for now.
[2020-10-13 18:11] LABS: Bedside Glucose 396 mg/dL (70-110)
[2020-10-13] MEDS: Rivaroxaban 20 MG Tablet PO (18:25)
[2020-10-13] MEDS: Atorvastatin Calcium 80 MG Tablet PO (23:01)
[2020-10-13 23:30] LABS: Bedside Glucose 487 mg/dL (70-110)
[2020-10-14] VITALS (14 sets, daily range): BP systolic 110–122; BP diastolic 53–67; PULSE 61–78; RESP 16–24; TEMP 35.7–36.7; O2SAT 93–97
[2020-10-14 00:45] LABS: Glucose 491 mg/dL (74-106)
[2020-10-14] MEDS: Insulin Lispro 100 UNIT/ML INSULN.PEN SC ×6 (01:21→20:56)
[2020-10-14 06:11] LABS: Bedside Glucose 289 mg/dL (70-110)
[2020-10-14 09:26] LABS: Hematocrit 48.9 % (40-54); Hemoglobin 16.2 g/dL (13.0-16.5); Mean Corp Hgb Conc 33.1 g/dL (32-36); Mean Corpuscular Hgb 30.6 pg (27.0-32.0); Mean Corpuscular Volume 92.4 fL (80-94); Mean Platelet Vol. 10.6 fl (6.2-12.0); Platelet Count 199 K/mm3 (150-450); RBC Distribution Width CV 12.9 % (11.6-14.6); RBC Distribution Width SD 43.7 fl (35.1-43.9); Red Blood Count 5.29 M/mm3 (4.6-6.2); White Blood Count 6.6 K/mm3 (4.4-11.0)
[2020-10-14 09:46] LABS: ALB/GLOB Ratio 0.8 RATIO (0.9-2.4); AST(SGOT) 12 U/L (15-37); Alanine Aminotransfer ALT/SGPT 21 U/L (16-61); Albumin, Serum 3.3 g/dL (3.2-5.0); Alkaline Phosphatase 102 U/L (45-117); Anion Gap 8 (5-15); BUN 42 mg/dL (7-18); BUN/Creat Ratio 20.9 RATIO (10-20); Calcium,Total 9.2 mg/dL (8.5-10.1); Chloride 100 mmol/L (98-107); Creatinine, Serum 2.01 mg/dL (0.70-1.30); EST Glomerular Filtration Rate 36 mL/min (>60); Est Glom Filt Rate - Afr Amer 43 mL/min (>60); Estimated Creatinine Clearance 35.45 ml/min; Glucose 286 mg/dL (74-106); Potassium 3.5 mmol/L (3.5-5.1); Protein, Total 7.3 g/dL (6.4-8.2); Sodium Level 135 mmol/L (136-145)
[2020-10-14] MEDS: TICAGRELOR 90 MG TABLET PO ×2 (10:10→20:56)
[2020-10-14] MEDS: Metoprolol(XL)Succ 25 MG Tablet PO ×2 (10:10→10:12)
[2020-10-14] MEDS: dexAMETHasone 4 MG Tablet 6 MG PO (10:11)
[2020-10-14] MEDS: guaiFENesin 1,200 MG Tablet 1200 MG PO ×2 (10:11→20:57)
[2020-10-14] MEDS: Furosemide 20 MG/2 ML VIAL IV ×2 (10:11→16:00)
[2020-10-14] MEDS: SACUBITRIL/VALSARTAN 24/26 MG TABLET 0.5 EACH PO ×2 (10:11→20:57)
[2020-10-14] MEDS: Ranolazine 500 MG Tablet 1000 MG PO ×2 (10:12→20:57)
[2020-10-14 11:36] LABS: Bedside Glucose 342 mg/dL (70-110)
[2020-10-14] MEDS: Rivaroxaban 20 MG Tablet PO (15:59)
[2020-10-14 16:25] LABS: Bedside Glucose 307 mg/dL (70-110)
--- NOTE | 2020-10-14 17:26 | PCM.PROGNOTE ---
Patient Problems: Active and Suspected Problems Elevated troponin I level (Acute) Dyspnea (Acute) SARS (severe acute respiratory syndrome) (Acute) COVID-19 (Acute) Heart failure (Acute) Subjective: Patient was seen and examined today, he remains on 2 L oxygen via nasal cannula. When I talked with the patient and examined him today, he was not wearing his oxygen. - Physical Exam Vitals/I&O's: Vital Signs Temp Pulse Resp BP Pulse Ox 96.3 F L 61 18 110/53 L 96 10/14/20 05:51 10/14/20 11:13 10/14/20 05:51 10/14/20 05:51 10/14/20 08:05 Oxygen Flow Rate (L/min) 2 Oxygen Delivery Method Nasal Cannula Weight: 88.1 kg Body Mass Index (BMI) 30.2 Intake and Output for Last 24 Hours 10/12/20 10/13/20 10/14/20 23:59 23:59 23:59 Intake Total 1851.2 / 1851.2 450 / 450 Output Total 1974 300 / 300 Balance -123.8 / -123.8 150 / 150 General: Alert, Cooperative, No apparent distress, Well developed, Well nourished HEENT: Atraumatic, PERRLA, EOMI, Normocephalic Oral: Moist Mucosa Neck: Supple, No JVD, Negative Carotid Bruits, No Nuchal Rigidity, Trachea Midline, Thyroid Normal Size and Texture Lungs: Clear to auscultation, Normal air movement, No rhonchi, No wheeze, No rales Cardiovascular: Regular rate, Regular Rhythm, Normal S1, Normal S2, No murmurs, PMI Normal, No rub noted Abdomen: Bowel Sounds Present, Soft, Non Tender, Non-Distended Extremities: No clubbing, No cyanosis, No edema, Capillary Refill Less than 3 Seconds Skin: No rashes, No breakdown Musculoskeletal: No Tenderness to Palpation of Joints or Extremities Neurological: Cranial nerves II-XII grossly intact, Neuro grossly intact, Sensory exam intact to light touch and pain Psych/Mental Status: Appropriate, Flat Affect, Alert and oriented to time, place, person, mood and affect Microbiology Past 72 Hours 10/13/20 04:12 Mucosa - Nose Respiratory Panel (PCR) - Final 10/13/20 02:45 Interface Orders Legionella Antigen - Final 10/13/20 02:45 Interface Orders Streptococcus pneumoniae Antigen (M - Final 10/12/20 23:59 Mucosa - Nose SARS-CoV-2 Antigen (Rapid) - Final SARS-CoV-2 (COVID 19) Laboratory Results 10/13/20 17:55: POC Glucose 396 H 10/13/20 23:09: POC Glucose 487 H* 10/14/20 00:24: Glucose 491 H* 10/14/20 05:46: POC Glucose 289 H 10/14/20 08:32: WBC 6.6, RBC 5.29, Hgb 16.2, Hct 48.9, MCV 92.4, MCH 30.6, MCHC 33.1, RDW Std Deviation 43.7, RDW Coeff of Chris 12.9, Plt Count 199, MPV 10.6 10/14/20 08:32: Sodium 135 L, Potassium 3.5, Chloride 100, Carbon Dioxide 27.0, Anion Gap 8, BUN 42 H, Creatinine 2.01 H, Estim Creat Clear Calc 35.45, Est GFR (MDRD) Af Amer 43 L, Est GFR (MDRD) Non-Af 36 L, BUN/Creatinine Ratio 20.9 H, Glucose 286 H, Calcium 9.2, Total Bilirubin 0.70, AST 12 L, ALT 21, Alkaline Phosphatase 102, Total Protein 7.3, Albumin 3.3, Globulin 4.0, Albumin/Globulin Ratio 0.8 L 10/14/20 11:27: POC Glucose 342 H 10/14/20 15:57: POC Glucose 307 H Current Medications Acetaminophen (Acetaminophen 325 Mg Tablet) 650 mg PO Q6H PRN PRN PRN Reason: Pain Score 1-10/Temp > 100.7 F Last Admin: 10/13/20 01:28 Dose: 650 mg Documented by: Atorvastatin Calcium (Atorvastatin Calcium 80 Mg Tablet) 80 mg PO QHS [facility] Last Admin: 10/13/20 23:01 Dose: 80 mg Documented by: Dexamethasone (Dexamethasone 4 Mg Tablet) 6 mg PO DAILY@0800 [facility] Stop: 10/22/20 08:01 Last Admin: 10/14/20 10:11 Dose: 6 mg Documented by: Dextrose (Dextrose 50%-Water 25 Gm/50 Ml Disp.Syrin) 0 gm IV X1 PRN; Protocol PRN Reason: Hypoglycemia Furosemide (Furosemide 20 Mg/2 Ml Vial) 20 mg IV BID@1000,1800 [facility] Last Admin: 10/14/20 16:00 Dose: 20 mg Documented by: Glucagon (Glucagon 1 Mg/Ml Syringe) 1 mg IM .X1 PRN PRN Reason: Hypoglycemia Guaifenesin (Guaifenesin 1,200 Mg Tablet) 1,200 mg PO BID [facility] Last Admin: 10/14/20 10:11 Dose: 1,200 mg Documented by: Remdesivir 100 mg/ Sodium (Chloride) 250 mls @ 125 mls/hr IV DAILY [facility] Stop: 10/17/20 11:59 Last Infusion: 10/14/20 16:06 Dose: Infused Documented by: Insulin Glargine (Insulin Glargine 100 Units/Ml Pen) 35 units SC 1800 [facility] Last Admin: 10/14/20 15:59 Dose: 35 units Documented by: Insulin Human Lispro (Insulin Lispro 100 Unit/Ml Insuln.Pen) 0 unit SC ACHS [facility]; Protocol Last Admin: 10/14/20 15:58 Dose: 4 units Documented by: Melatonin (Melatonin 3 Mg Tablet) 3 mg PO QHS PRN PRN PRN Reason: INSOMNIA Metoprolol Succinate (Metoprolol(Xl)Succ 25 Mg Tablet) 25 mg PO DAILY [facility] Last Admin: 10/14/20 10:12 Dose: 25 mg Documented by: Nitroglycerin (Nitroglycerin (Inpatient Use) 0.4 Mg Tab.Subl) 0.4 mg SUBLINGUAL Q5M PRN PRN Reason: CARDIAC/CHEST PAIN Nutritional Formula (Lactose Free) (Ensure Enlive 120 Ml Liquid) 120 ml PO 4X/DAY [facility] Last Admin: 10/14/20 15:59 Dose: Not Given Documented by: Ondansetron HCl (Ondansetron 4 Mg/2 Ml Vial) 4 mg IV Q8H PRN PRN PRN Reason: NAUSEA/VOMITING Potassium Chloride (Potassium Chloride 20 Meq Tablet) 20 meq PO DAILYCM [facility] Last Admin: 10/14/20 10:10 Dose: 20 meq Documented by: Ranolazine (Ranolazine 500 Mg Tablet) 1,000 mg PO BID [facility] Last Admin: 10/14/20 10:12 Dose: 1,000 mg Documented by: Rivaroxaban (Rivaroxaban 20 Mg Tablet) 20 mg PO DAILY@1700 [facility] Last Admin: 10/14/20 15:59 Dose: 20 mg Documented by: Sacubitril/Valsartan (Sacubitril/Valsartan 24/26 Mg Tablet) 0.5 each PO BID [facility] Last Admin: 10/14/20 10:11 Dose: 0.5 each Documented by: Sodium Chloride (0.9% Saline Lock 10 Ml Syringe) 10 - 40 ml IV UD PRN PRN Reason: SALINE FLUSH Last Admin: 10/13/20 23:05 Dose: 10 ml Documented by: Ticagrelor (Ticagrelor 90 Mg Tablet) 90 mg PO BID [facility] Last Admin: 10/14/20 10:10 Dose: 90 mg Documented by: Medical Necessity - Tobacco Use Smoking Status: Never smoker Tobacco Use: Non-smoker Assessment/Plan All Active Problems Elevated troponin I level (Acute) Dyspnea (Acute) SARS (severe acute respiratory syndrome) (Acute) COVID-19 (Acute) Heart failure (Acute) #1 COVID-19 infection-patient's chest x-ray on admission was read out as normal, continue present medications per ID, remdesivir may have to be stopped if the patient's creatinine continues to elevate. #2 hypoxia secondary to #1-pulse ox will be monitored, oxygen will be adjusted #3 coronary artery disease #4 type 2 diabetes-blood sugars will be monitored #5 [id number] present medications #6 probable chronic kidney disease stage III secondary to type 2 diabetes-continue to monitor CMP, I will stop IV Lasix at this time Inpatient E&M: [id number] [facility] Hosp L2
[2020-10-14] MEDS: Atorvastatin Calcium 80 MG Tablet PO (20:56)
[2020-10-14 23:51] LABS: Bedside Glucose 379 mg/dL (70-110)
[2020-10-15] VITALS (17 sets, daily range): BP systolic 116–151; BP diastolic 58–93; PULSE 58–84; RESP 16–24; TEMP 35.7–36.6; O2SAT 93–98; BMI 30.2
[2020-10-15 06:47] LABS: Hemoglobin 16.5 g/dL (13.0-16.5); Mean Corp Hgb Conc 32.4 g/dL (32-36); Mean Corpuscular Hgb 29.5 pg (27.0-32.0); Mean Corpuscular Volume 91.1 fL (80-94); Mean Platelet Vol. 10.5 fl (6.2-12.0); Platelet Count 261 K/mm3 (150-450); RBC Distribution Width CV 12.9 % (11.6-14.6); RBC Distribution Width SD 44.4 fl (35.1-43.9); White Blood Count 6.3 K/mm3 (4.4-11.0)
[2020-10-15] MEDS: Insulin Lispro 100 UNIT/ML INSULN.PEN SC ×3 (06:58→18:03)
[2020-10-15 07:11] LABS: Bedside Glucose 437 mg/dL (70-110)
[2020-10-15 07:28] LABS: ALB/GLOB Ratio 0.8 RATIO (0.9-2.4); AST(SGOT) 8 U/L (15-37); Alanine Aminotransfer ALT/SGPT 17 U/L (16-61); Albumin, Serum 3.3 g/dL (3.2-5.0); Alkaline Phosphatase 107 U/L (45-117); Anion Gap 10 (5-15); BUN 50 mg/dL (7-18); BUN/Creat Ratio 23.7 RATIO (10-20); Calcium,Total 8.9 mg/dL (8.5-10.1); Chloride 98 mmol/L (98-107); Creatinine, Serum 2.11 mg/dL (0.70-1.30); EST Glomerular Filtration Rate 34 mL/min (>60); Est Glom Filt Rate - Afr Amer 41 mL/min (>60); Estimated Creatinine Clearance 33.77 ml/min; Globulin 4.1 g/dL (2.2-4.2); Glucose 442 mg/dL (74-106); Potassium 3.9 mmol/L (3.5-5.1); Protein, Total 7.4 g/dL (6.4-8.2); Sodium Level 131 mmol/L (136-145)
[2020-10-15] MEDS: dexAMETHasone 4 MG Tablet 6 MG PO (09:40)
[2020-10-15] MEDS: SACUBITRIL/VALSARTAN 24/26 MG TABLET 0.5 EACH PO (10:58)
[2020-10-15] MEDS: Ranolazine 500 MG Tablet 1000 MG PO (10:58)
[2020-10-15] MEDS: guaiFENesin 1,200 MG Tablet 1200 MG PO (10:58)
[2020-10-15] MEDS: Metoprolol(XL)Succ 25 MG Tablet PO (11:06)
[2020-10-15] MEDS: TICAGRELOR 90 MG TABLET PO (11:28)
--- NOTE | 2020-10-15 11:44 | PCM.PROGNOTE ---
Patient Problems: Active and Suspected Problems Elevated troponin I level (Acute) Dyspnea (Acute) SARS (severe acute respiratory syndrome) (Acute) COVID-19 (Acute) Heart failure (Acute) Subjective: Was seen and examined today, his pulse ox is 93% on room air, I asked nursing to walk him today to see if he would require oxygen, on ambulation the patient got sick to his stomach and threw up. Patient's creatinine today is more elevated than yesterday. I have decided that the patient should stay here and see infectious diseases tomorrow, he is still receiving remdesivir, he will have to be reevaluated tomorrow for any home-going oxygen needs. Patient does not complain of any shortness of breath, fever, or chest discomfort today. Objective: General: Alert, Cooperative, No apparent distress, Well developed, Well nourished HEENT: Atraumatic, PERRLA, EOMI, Normocephalic Oral: Moist Mucosa Neck: Supple, No JVD, Negative Carotid Bruits, No Nuchal Rigidity, Trachea Midline, Thyroid Normal Size and Texture Lungs: Clear to auscultation, Normal air movement, No rhonchi, No wheeze, No rales Cardiovascular: Regular rate, Regular Rhythm, Normal S1, Normal S2, No murmurs, PMI Normal, No rub noted Abdomen: Bowel Sounds Present, Soft, Non Tender, Non-Distended Extremities: No clubbing, No cyanosis, No edema, Capillary Refill Less than 3 Seconds Skin: No rashes, No breakdown Musculoskeletal: No Tenderness to Palpation of Joints or Extremities Neurological: Cranial nerves II-XII grossly intact, Neuro grossly intact, Sensory exam intact to light touch and pain Psych/Mental Status: Appropriate, Flat Affect, Alert and oriented to time, place, person, mood and affect - Physical Exam Vitals/I&O's: Vital Signs Temp Pulse Resp BP Pulse Ox 98 F 68 20 H 116/69 93 10/15/20 09:03 10/15/20 11:10/15/20 09:03 10/15/20 11:10/15/20 09:03 Oxygen Flow Rate (L/min) 2 Oxygen Delivery Method Room Air Weight: 88 kg Body Mass Index (BMI) 30.2 Intake and Output for Last 24 Hours 10/13/20 10/14/20 10/15/20 23:59 23:59 23:59 Intake Total 1851.2 / 1851.2 916 / 916 0 / 0 Output Total 1974 300 / 300 250 / 250 Balance -123.8 / -123.8 616 / 616 -250 / -250 Microbiology Past 72 Hours 10/13/20 04:12 Mucosa - Nose Respiratory Panel (PCR) - Final 10/13/20 02:45 Interface Orders Legionella Antigen - Final 10/13/20 02:45 Interface Orders Streptococcus pneumoniae Antigen (M - Final 10/12/20 23:59 Mucosa - Nose SARS-CoV-2 Antigen (Rapid) - Final SARS-CoV-2 (COVID 19) Laboratory Results 10/14/20 15:57: POC Glucose 307 H 10/14/20 20:55: POC Glucose 379 H 10/15/20 06:37: WBC 6.3, RBC 5.60, Hgb 16.5, Hct 51.0, MCV 91.1, MCH 29.5, MCHC 32.4, RDW Std Deviation 44.4 H, RDW Coeff of Chris 12.9, Plt Count 261, MPV 10.5 10/15/20 06:37: Sodium 131 L, Potassium 3.9, Chloride 98, Carbon Dioxide 23.0, Anion Gap 10, BUN 50 H, Creatinine 2.11 H, Estim Creat Clear Calc 33.77, Est GFR (MDRD) Af Amer 41 L, Est GFR (MDRD) Non-Af 34 L, BUN/Creatinine Ratio 23.7 H, Glucose 442 H, Calcium 8.9, Total Bilirubin 0.70, AST 8 L, ALT 17, Alkaline Phosphatase 107, Total Protein 7.4, Albumin 3.3, Globulin 4.1, Albumin/Globulin Ratio 0.8 L 10/15/20 06:54: POC Glucose 437 H Current Medications Acetaminophen (Acetaminophen 325 Mg Tablet) 650 mg PO Q6H PRN PRN PRN Reason: Pain Score 1-10/Temp > 100.7 F Last Admin: 10/13/20 01:28 Dose: 650 mg Documented by: Atorvastatin Calcium (Atorvastatin Calcium 80 Mg Tablet) 80 mg PO QHS [facility] Last Admin: 10/14/20 20:56 Dose: 80 mg Documented by: Dexamethasone (Dexamethasone 4 Mg Tablet) 6 mg PO DAILY@0800 [facility] Stop: 10/22/20 08:01 Last Admin: 10/15/20 09:40 Dose: 6 mg Documented by: Dextrose (Dextrose 50%-Water 25 Gm/50 Ml Disp.Syrin) 0 gm IV X1 PRN; Protocol PRN Reason: Hypoglycemia Glucagon (Glucagon 1 Mg/Ml Syringe) 1 mg IM .X1 PRN PRN Reason: Hypoglycemia Guaifenesin (Guaifenesin 1,200 Mg Tablet) 1,200 mg PO BID [facility] Last Admin: 10/15/20 10:58 Dose: 1,200 mg Documented by: Remdesivir 100 mg/ Sodium (Chloride) 250 mls @ 125 mls/hr IV DAILY [facility] Stop: 10/17/20 11:59 Last Admin: 10/15/20 11:08 Dose: 125 mls/hr Documented by: Insulin Glargine (Insulin Glargine 100 Units/Ml Pen) 60 units SC 1800 [facility] Insulin Human Lispro (Insulin Lispro 100 Unit/Ml Insuln.Pen) 0 unit SC ACHS [facility]; Protocol Last Admin: 10/15/20 06:58 Dose: 7 units Documented by: Melatonin (Melatonin 3 Mg Tablet) 3 mg PO QHS PRN PRN PRN Reason: INSOMNIA Metoprolol Succinate (Metoprolol(Xl)Succ 25 Mg Tablet) 25 mg PO DAILY [facility] Last Admin: 10/15/20 11:06 Dose: 25 mg Documented by: Nitroglycerin (Nitroglycerin (Inpatient Use) 0.4 Mg Tab.Subl) 0.4 mg SUBLINGUAL Q5M PRN PRN Reason: CARDIAC/CHEST PAIN Nutritional Formula (Lactose Free) (Ensure Enlive 120 Ml Liquid) 120 ml PO 4X/DAY [facility] Last Admin: 10/15/20 10:58 Dose: Not Given Documented by: Ondansetron HCl (Ondansetron 4 Mg/2 Ml Vial) 4 mg IV Q8H PRN PRN PRN Reason: NAUSEA/VOMITING Potassium Chloride (Potassium Chloride 20 Meq Tablet) 20 meq PO DAILYCM [facility] Last Admin: 10/15/20 09:41 Dose: 20 meq Documented by: Ranolazine (Ranolazine 500 Mg Tablet) 1,000 mg PO BID [facility] Last Admin: 10/15/20 10:58 Dose: 1,000 mg Documented by: Rivaroxaban (Rivaroxaban 20 Mg Tablet) 20 mg PO DAILY@1700 [facility] Last Admin: 10/14/20 15:59 Dose: 20 mg Documented by: Sacubitril/Valsartan (Sacubitril/Valsartan 24/26 Mg Tablet) 0.5 each PO BID [facility] Last Admin: 10/15/20 10:58 Dose: 0.5 each Documented by: Sodium Chloride (0.9% Saline Lock 10 Ml Syringe) 10 - 40 ml IV UD PRN PRN Reason: SALINE FLUSH Last Admin: 10/13/20 23:05 Dose: 10 ml Documented by: Ticagrelor (Ticagrelor 90 Mg Tablet) 90 mg PO BID [facility] Last Admin: 10/15/20 11:28 Dose: 90 mg Documented by: Medical Necessity - Tobacco Use Smoking Status: Never smoker Tobacco Use: Non-smoker Assessment/Plan All Active Problems Elevated troponin I level (Acute) Dyspnea (Acute) SARS (severe acute respiratory syndrome) (Acute) COVID-19 (Acute) Heart failure (Acute) #1 COVID-19 infection-patient's chest x-ray on admission was read out as normal, continue present medications per ID, remdesivir may have to be stopped if the patient's creatinine continues to elevate. I will give the patient a fluid bolus today. #2 hypoxia secondary to #1-pulse ox will be monitored, oxygen will be adjusted #3 coronary artery disease #4 type 2 diabetes-blood sugars will be monitored, I have increased the patient's basal insulin due to elevated blood sugars probably as result of the dexamethasone. #5 [id number] present medications #6 probable chronic kidney disease stage III secondary to type 2 diabetes-continue to monitor CMP Inpatient E&M: [id number] [facility] Hosp L2
--- NOTE | 2020-10-15 12:37 | NURSING ---
1140 into pt room, pt with 250 cc emesis. got lightheaded and dizzy. repositioned in bed. Dr aware, see new orders Francisca Barrera RN
[2020-10-15 13:56] LABS: Bedside Glucose 404 mg/dL (70-110)
--- NOTE | 2020-10-15 15:21 | NURSING ---
1500 in to pt room, pt naked, iv pulled out x2, heart monitor pulled off, pt incontinent. pt disoriented, able to answer place. pt leaning to left side and nystagmus noted in both eyes.pt with small amount of emesis. reoriented pt and back to bed. Dr Becerra notified of emesis, disorientation, leaning to left side and nystagmus. vss, pox 96% on RA. new orders-KUB, IVF and pt NPO Francisca Barrera RN
--- NOTE | 2020-10-15 15:55 | NURSING ---
Made aware of patients mental status changing by patients RN. This RN went into patients room to assess him. Pt was alert to self only and was unsure of birthday, place or time. Pt did have some mild to moderate dysarthria as well. Pts blood glucose was obtained and was 304. Pt's sugar was in the 400's earlier in the day. This RN then notified the physician of findings. Please see physician notifications.
--- NOTE | 2020-10-15 16:18 | CT_ITS ---
STUDY: CT BRAIN WITHOUT CONTRAST REASON FOR EXAM: Male, 65 years old. change mental status. COVID POSITIVE RADIATION DOSAGE (If Supplied By Facility): CTDIvol = ( 44.99 ) mGy, DLP = ( 846.73 ) mGycm TECHNIQUE: Transaxial CT imaging of the brain was performed without administration of intravenous contrast material. Individualized dose optimization techniques were used for this CT. COMPARISON: No relevant priors. FINDINGS: Normal soft tissue structures. Normal calvarium. There is mild cerebral atrophy with widening of the extra-axial spaces and ventricular dilatation. There are areas of decreased attenuation within the white matter tracts of the supratentorial brain, consistent with microvascular disease changes. Localized area of encephalomalacia and gliosis of the right parietal lobe as well as in multiple regions of the cerebellum. Normal basal ganglia and thalami. Normal brainstem. There is no intracranial hemorrhage. There are no findings of an acute ischemic infarction. A left vertebral artery stent is identified. Normal visualized paranasal sinuses. CT/Brain/Head without Contrast IMPRESSION: 1. No acute intracranial hemorrhage or mass effect. 2. Localized areas of encephalomalacia and gliosis of the bilateral cerebellar hemispheres and the right parietal lobe, compatible with subacute or old infarctions. No comparison studies are available. 3. Left vertebral artery stent. Electronically Signed: Vasu Ivy MD ([place]) at 16:53 EST , Service support ,
--- NOTE | 2020-10-15 16:40 | RAD_ITS ---
STUDY: X-RAY - ABDOMEN/PELVIS REASON FOR EXAM: Male, 65 years old. nausea and vomiting TECHNIQUE: Single AP view of the abdomen / pelvis. COMPARISON: None. FINDINGS: Normal visualized lung bases. There is an unremarkable bowel gas pattern. There is no demonstrated free abdominal air. The visualized liver, spleen and kidneys are grossly normal in size and morphology. Normal soft tissue structures. There are diffuse degenerative changes of the visualized lumbar spine. RAD/Abdomen Single View (Portable) IMPRESSION: Nonobstructed bowel gas pattern. Electronically Signed: Vasu Ivy MD (Brooks) at 17:23 EST , Service support ,
[2020-10-15 17:20] LABS: Bedside Glucose 304 mg/dL (70-110)
[2020-10-15] MEDS: 0.9% Normal Saline 1,000 ML 75 ML IV ×2 (17:46→20:32)
--- NOTE | 2020-10-15 18:34 | PCM.HOSP.N ---
Hospitalist Note Additional note: I was informed by nursing late this afternoon that the patient became confused and had slurred speech, I had a CT of the brain performed which showed encephalomalacia from an old stroke and an area that they are calling either an acute or subacute stroke. I have decided at this time to take the patient off Xarelto-the benefits of this drug outweigh the risk of causing intracerebral bleeding, I talked with his daughter, patient has an extensive history of cerebrovascular disease and also coronary artery disease with multiple stent placement (29). Patient's daughter is aware that the patient could have had a stroke, she wonders whether it could have happened several days ago when she brought the patient into [facility] for evaluation, so therefore, I ordered an MRI of the brain for tomorrow as well as an MRA of the head and neck. Patient was made n.p.o. and PT, OT, and speech will see the patient. I will defer ordering an echocardiogram at this time due to the patient's COVID-19 positivity and the possibility that this patient has had an echocardiogram in the past at a another hospital that we could access to look for an atrial septal defect. Patient is currently a DNR CC arrest with no intubation, because of repeated episodes of vomiting today, I have made him n.p.o. and placed him on IV fluid. I have ordered NIH stroke scores on the patient. Patient's vital signs at this time are stable according to nursing. Further note: I have made multiple attempts to talk again with the daughter but her phone goes to voicemail.
--- NOTE | 2020-10-15 19:22 | CT_ITS ---
STUDY: CT BRAIN WITHOUT CONTRAST REASON FOR EXAM: Male, 65 years old. CVA,FELL OUT OF BED RADIATION DOSAGE (If Supplied By Facility): CTDIvol = ( 44.99 ) mGy, DLP = ( 897.35 ) mGycm TECHNIQUE: Transaxial CT imaging of the brain was performed without administration of intravenous contrast material. Individualized dose optimization techniques were used for this CT. COMPARISON: 4:39 PM. FINDINGS: Normal soft tissue structures. Normal calvarium. There is mild cerebral atrophy with widening of the extra-axial spaces and ventricular dilatation. There are areas of decreased attenuation within the white matter tracts of the supratentorial brain, consistent with microvascular disease changes. There is no intracranial hemorrhage. Subtle low-attenuation changes questioned in the right thalamic nucleus, new compared to the prior study, suspicious for acute thalamic lacunar infarct. Chronic right parietal infarct in a watershed distribution. Chronic bilateral cerebellar infarcts. Normal visualized paranasal sinuses. CT/Brain/Head without Contrast IMPRESSION: 1. Acute right thalamic lacunar infarct. 2. Chronic right parietal infarct. Chronic cerebellar infarcts. 3. Microvascular ischemia. Atrophy. N.B. : The above information has been verbally conveyed by Jennifer Brewer MD to Rosa Saleem RN, on 10/15/2020 20:07:08 (ET). Electronically Signed: Jennifer Brewer MD at 20:08 EST Tel , Service support ,
[2020-10-15 19:36] LABS: Bedside Glucose 357 mg/dL (70-110)
[2020-10-15 19:36] LABS: Bedside Glucose 270 mg/dL (70-110)
--- NOTE | 2020-10-15 19:41 | NURSING ---
CT notified previously that none of pt scans are to have contrast.
--- NOTE | 2020-10-15 19:44 | PCM.RRT.BLA ---
Rapid Response Note - Blank Rapid response called because patient was found on the floor and had laceration on head and was bleeding. Patient lethargic respond to sternal rub Heart sounds S1 s2 present Earlier patient had nausea and was vomiting . Last known well about [address] earlier today because of possible stroke as patient had slurry speech. Will get CT head stat . Unable to get cta head and neck because of alexx MRI BRAIN MRI in am mri/mra neck in am. Stroke alert called ice to forehead
--- NOTE | 2020-10-15 20:25 | NURSING ---
Failing pt dysphagia screen at this time as pt is not following commands. Will continue to monitor.
--- NOTE | 2020-10-15 20:38 | PN_ITS ---
Progress Note Discussed case with telestroke neurologist at [facility]. Patient is a candidate of TPA. Per telestroke neurologist if MRI does not show bleed consider starting patient again heparin drip and transitioning to Xarelto. Okay to start patient on aspirin if CT does not show bleed. CT head returned positive for acute right thalamic infarct. No bleed. Will start patient on aspirin 300 mg rectally. Nursing do bedside swallow eval. Patient already on high intensity statin. STROKE Vital Signs/Narrative: Vital Signs Temp Pulse Resp BP Pulse Ox 10/15/20 19:11 70 10/15/20 17:42 98 F 84 20 H 125/58 H 95
--- NOTE | 2020-10-15 20:53 | NURSING ---
Pt difficult to score at this time. A/O x1. Not speaking much.
--- NOTE | 2020-10-15 21:25 | NURSING ---
Updated pt daughter (Kaia) at this time. Kaia concerned and wanting staff to be aware that pt has 29 stents in his heart and 2 stents in his brain. Kaia states pt has times where he spaces out. Kaia encouraged to call for updates if desired.
[2020-10-15] MEDS: Aspirin 300 MG Suppository RECTAL (21:39)
--- NOTE | 2020-10-15 21:53 | NURSING ---
1914 witnessed by hull and deck remover nurse, pt with fall in room. Francisca Barrera RN
--- NOTE | 2020-10-15 21:55 | NURSING ---
192 Stroke alert team called Francisca Barrera RN
[2020-10-16] VITALS (13 sets, daily range): BP systolic 111–155; BP diastolic 68–100; PULSE 59–88; RESP 18–20; TEMP 36.3–37.1; O2SAT 95–99; BMI 30.2
[2020-10-16 00:16] LABS: Bedside Glucose 242 mg/dL (70-110)
[2020-10-16] MEDS: Insulin Lispro 100 UNIT/ML INSULN.PEN SC ×4 (06:12→23:30)
[2020-10-16 07:02] LABS: Hematocrit 49.2 % (40-54); Hemoglobin 16.3 g/dL (13.0-16.5); Mean Corp Hgb Conc 33.1 g/dL (32-36); Mean Corpuscular Hgb 30.2 pg (27.0-32.0); Mean Corpuscular Volume 91.1 fL (80-94); Mean Platelet Vol. 10.5 fl (6.2-12.0); Platelet Count 332 K/mm3 (150-450); RBC Distribution Width CV 13.2 % (11.6-14.6); RBC Distribution Width SD 44.4 fl (35.1-43.9); White Blood Count 8.6 K/mm3 (4.4-11.0)
[2020-10-16 07:49] LABS: ALB/GLOB Ratio 1.1 RATIO (0.9-2.4); AST(SGOT) 15 U/L (15-37); Alanine Aminotransfer ALT/SGPT 16 U/L (16-61); Albumin, Serum 3.3 g/dL (3.2-5.0); Alkaline Phosphatase 99 U/L (45-117); Anion Gap 8 (5-15); BUN 47 mg/dL (7-18); Calcium,Total 8.7 mg/dL (8.5-10.1); Chloride 109 mmol/L (98-107); Creatinine, Serum 1.81 mg/dL (0.70-1.30); EST Glomerular Filtration Rate 40 mL/min (>60); Est Glom Filt Rate - Afr Amer 49 mL/min (>60); Estimated Creatinine Clearance 39.36 ml/min; Glucose 226 mg/dL (74-106); Potassium 4.4 mmol/L (3.5-5.1); Protein, Total 6.3 g/dL (6.4-8.2); Sodium Level 142 mmol/L (136-145)
[2020-10-16 08:01] LABS: Bedside Glucose 212 mg/dL (70-110)
--- NOTE | 2020-10-16 08:13 | PN_ITS ---
Patient Problems: Active and Suspected Problems SARS (severe acute respiratory syndrome) (Acute) COVID-19 (Acute) Subjective: Chief complaint: Follow-up after admission for acute COVID-19 infection, hypoxia, non-STEMI, acute stroke. Patient seen and examined. Overnight, other response was called because patient was found on the floor with head laceration, was lethargic. CT scan head done and showed acute lacunar infarct. SOC to neurology consulted, not a candidate for TPA. MRI brain ordered. This morning, he is alert, oriented x2, disoriented to place. Apart from mild cough, no other complaints. Denies significant shortness of breath. Denied focal arm or leg weakness. Denied blurred vision or slurred speech. He is afebrile, blood pressure and heart rate are stable, pulse ox is 97% on 2 L. - Physical Exam Vitals/I&O's: Vital Signs Temp Pulse Resp BP Pulse Ox 97.3 F L 62 20 H 155/97 H 97 10/16/20 04:10 10/16/20 04:10 10/16/20 04:10 10/16/20 04:10 10/16/20 04:10 Oxygen Flow Rate (L/min) 2 Oxygen Delivery Method Nasal Cannula Weight: 194 lb 0.108 oz Body Mass Index (BMI) 30.2 Finger Stick Blood Glucose 270 Intake and Output for Last 24 Hours 10/14/20 10/15/20 10/16/20 23:59 23:59 23:59 Intake Total 916 / 916 1490.0 / 1490.0 0 / 0 Output Total 300 / 300 550 / 550 400 / 400 Balance 616 / 616 940.0 / 940.0 -400 / -400 General: Alert, Cooperative, No apparent distress, Disoriented HEENT: PERRLA, EOMI, - - Left forehead laceration, dressed. Left periorbital ecchymosis. Oral: Moist Mucosa, No Gingival or Mucosal Lesions/ Ulcerations Neck: Supple, No JVD, Negative Carotid Bruits, Trachea Midline, Thyroid Normal Size and Texture Lungs: Clear to auscultation, No rhonchi, No wheeze, No rales, Diminished Cardiovascular: Regular rate, Regular Rhythm, Normal S1, Normal S2 Abdomen: Bowel Sounds Present, Soft, Non Tender, Non-Distended, No Hepato- splenomegaly Extremities: No clubbing, No cyanosis, No edema Skin: No rashes, No breakdown Lymphatic: No Cervical, Supraclavicular, or Inguinal Adenopathy Neurological: Cranial nerves II-XII grossly intact, Neuro grossly intact, - - Global weakness. Psych/Mental Status: Normal Affect, Appropriate Microbiology Past 72 Hours 10/13/20 04:12 Mucosa - Nose Respiratory Panel (PCR) - Final 10/13/20 02:45 Interface Orders Legionella Antigen - Final 10/13/20 02:45 Interface Orders Streptococcus pneumoniae Antigen (M - Final Laboratory Results 10/15/20 13:03: POC Glucose 404 H 10/15/20 15:55: POC Glucose 304 H 10/15/20 18:02: POC Glucose 357 H 10/15/20 19:13: POC Glucose 270 H 10/15/20 21:01: POC Glucose 242 H 10/16/20 05:20: WBC 8.6, RBC 5.40, Hgb 16.3, Hct 49.2, MCV 91.1, MCH 30.2, MCHC 33.1, RDW Std Deviation 44.4 H, RDW Coeff of Chris 13.2, Plt Count 332, MPV 10.5 10/16/20 05:20: Sodium 142, Potassium 4.4, Chloride 109 H, Carbon Dioxide 25.0, Anion Gap 8, BUN 47 H, Creatinine 1.81 H, Estim Creat Clear Calc 39.36, Est GFR (MDRD) Af Amer 49 L, Est GFR (MDRD) Non-Af 40 L, BUN/Creatinine Ratio 26.0 H, Glucose 226 H, Calcium 8.7, Total Bilirubin 0.60, AST 15, ALT 16, Alkaline Phosphatase 99, Total Protein 6.3 L, Albumin 3.3, Globulin 3.0, Albumin/Globulin Ratio 1.1 10/16/20 06:09: POC Glucose 212 H Clinical Impression(s) from Imaging Studies Brain CT 10/15/20 19:22 IMPRESSION: 1. Acute right thalamic lacunar infarct. 2. Chronic right parietal infarct. Chronic cerebellar infarcts. 3. Microvascular ischemia. Atrophy. N.B. : The above information has been verbally conveyed by Jennifer Brewer MD to Rosa Saleem RN, on 10/15/2020 20:07:08 (ET). Electronically Signed: Jennifer Brewer MD at 20:08 EST Tel , Service support , ADDENDUM: 10/15/202014 IMPRESSION: 1. Acute right thalamic lacunar infarct. 2. Chronic right parietal infarct. Chronic cerebellar infarcts. 3. Microvascular ischemia. Atrophy. N.B. : The above information has been verbally conveyed by Jennifer Brewer MD to Rosa Saleem RN, on 10/15/2020 20:07:08 (ET). Electronically Signed: Jennifer Brewer MD at 20:08 EST Tel , Service support , Current Medications Acetaminophen (Acetaminophen 325 Mg Tablet) 650 mg PO Q6H PRN PRN PRN Reason: Pain Score 1-10/Temp > 100.7 F Last Admin: 10/13/20 01:28 Dose: 650 mg Documented by: Aspirin (Aspirin 300 Mg Suppository) 300 mg RECTAL DAILY [facility] Last Admin: 10/15/20 21:39 Dose: 300 mg Documented by: Atorvastatin Calcium (Atorvastatin Calcium 80 Mg Tablet) 80 mg PO QHS [facility] Last Admin: 10/15/20 19:57 Dose: Not Given Documented by: Dexamethasone (Dexamethasone 4 Mg Tablet) 6 mg PO DAILY@0800 [facility] Stop: 10/22/20 08:01 Last Admin: 10/15/20 09:40 Dose: 6 mg Documented by: Dextrose (Dextrose 50%-Water 25 Gm/50 Ml Disp.Syrin) 0 gm IV X1 PRN; Protocol PRN Reason: Hypoglycemia Glucagon (Glucagon 1 Mg/Ml Syringe) 1 mg IM .X1 PRN PRN Reason: Hypoglycemia Guaifenesin (Guaifenesin 1,200 Mg Tablet) 1,200 mg PO BID [facility] Last Admin: 10/15/20 19:57 Dose: Not Given Documented by: Remdesivir 100 mg/ Sodium (Chloride) 250 mls @ 125 mls/hr IV DAILY [facility] Stop: 10/17/20 11:59 Last Infusion: 10/15/20 13:45 Dose: Infused Documented by: Sodium Chloride () 1,000 mls @ 75 mls/hr IV .[id number] [facility] Last Admin: 10/15/20 20:32 Dose: 75 mls/hr Documented by: Insulin Glargine (Insulin Glargine 100 Units/Ml Pen) 60 units SC 1800 [facility] Last Admin: 10/15/20 18:11 Dose: 30 u Documented by: Insulin Human Lispro (Insulin Lispro 100 Unit/Ml Insuln.Pen) 0 unit SC Q6 [facility]; Protocol Last Admin: 10/16/20 06:12 Dose: 2 u Documented by: Melatonin (Melatonin 3 Mg Tablet) 3 mg PO QHS PRN PRN PRN Reason: INSOMNIA Metoprolol Succinate (Metoprolol(Xl)Succ 25 Mg Tablet) 25 mg PO DAILY [facility] Last Admin: 10/15/20 11:06 Dose: 25 mg Documented by: Nitroglycerin (Nitroglycerin (Inpatient Use) 0.4 Mg Tab.Subl) 0.4 mg SUBLINGUAL Q5M PRN PRN Reason: CARDIAC/CHEST PAIN Nutritional Formula (Lactose Free) (Ensure Enlive 120 Ml Liquid) 120 ml PO 4X/DAY [facility] Last Admin: 10/15/20 19:57 Dose: Not Given Documented by: Ondansetron HCl (Ondansetron 4 Mg/2 Ml Vial) 4 mg IV Q8H PRN PRN PRN Reason: NAUSEA/VOMITING Potassium Chloride (Potassium Chloride 20 Meq Tablet) 20 meq PO DAILYCM [facility] Last Admin: 10/15/20 09:41 Dose: 20 meq Documented by: Ranolazine (Ranolazine 500 Mg Tablet) 1,000 mg PO BID [facility] Last Admin: 10/15/20 19:57 Dose: Not Given Documented by: Sacubitril/Valsartan (Sacubitril/Valsartan 24/26 Mg Tablet) 0.5 each PO BID [facility] Last Admin: 10/15/20 19:57 Dose: Not Given Documented by: Sodium Chloride (0.9% Saline Lock 10 Ml Syringe) 10 - 40 ml IV UD PRN PRN Reason: SALINE FLUSH Last Admin: 10/13/20 23:05 Dose: 10 ml Documented by: Ticagrelor (Ticagrelor 90 Mg Tablet) 90 mg PO BID [facility] Last Admin: 10/15/20 19:56 Dose: Not Given Documented by: Medical Necessity - Tobacco Use Smoking Status: Never smoker Tobacco Use: Non-smoker Assessment/Plan All Active Problems Acute right thalamic infarct (Acute) Non-ST elevation OK (NSTEMI) (Acute) SARS (severe acute respiratory syndrome) (Acute) COVID-19 (Acute) This is a 65 years old male patient presented to the emergency room because of cough and shortness of breath, found to have acute COVID-19 pneumonia with hypoxia, found to have acute non-ST elevation OK and he developed confusion with slurred speech after admission, found to have acute stroke. #1 acute COVID-19 infection/hypoxia: Without obvious infiltrate on chest x-ray. He is on IV Decadron and remdesivir. Currently, pulse ox is maintained at 97% on 2 L. Pneumococcal and Legionella antigen were negative. Respiratory panel for viruses were negative. Infectious disease on the case. Plan to continue same treatment, wean off oxygen as tolerated. #2 non-ST elevation OK: Likely due to demand ischemia due to hypoxia in the setting of CAD. Currently, patient is on aspirin, Brilinta, statins, metoprolol and Ranexa. Cardiology consulted and recommended medical treatment, no plan for cardiac catheterization or interventions at this time. Patient denied any chest pain. Plan to continue current treatment. #3 acute right thalamic lacunar infarct: This was diagnosed on CT scan brain that was done last night due to confusion and slurred speech. Patient is currently on aspirin and statins as well as Brilinta. He has no focal deficit. Blood pressure stable. MRI brain as well as MRA of the head and neck ordered. Echocardiogram deferred because of COVID-19 positivity. #4 closed head injury: Due to mechanical fall, has left forehead laceration and left eyelid ecchymosis. CT scan brain showed no acute hemorrhage. Plan as above. #5 renal sufficiency: Unknown if it is acute or chronic, more likely chronic. Admission creatinine was 1.66, went up to 2.11 and it is down to 1.81 today. No previous blood work to compare. I will stop IV fluids. Plan to repeat BMP tomorrow morning. #6 probable acute on chronic gastric CHF: Patient received IV Lasix, currently he is off. BNP was elevated. He is on Entresto. I will start IV fluids as above. #6 type 2 diabetes mellitus: Blood sugar has been fluctuating because of IV steroids. Patient is on Lantus and sliding scale. #7 CAD/ischemic cardiomyopathy: Continue aspirin, statins, beta-blockers and Ranexa as well as Brilinta. #8 paroxysmal A. fib: Rate is stable, currently in sinus rhythm. Continue metoprolol for rate control. Xarelto held because of acute stroke. #9 factor V Leiden: Currently Xarelto is on hold. #10 DVT prophylaxis: SCDs. Xarelto held because of acute stroke. This note was generated with [employer] dictation software. It may contain incorrect words, spelling, and punctuation that were not noted in checking the note before signing. Inpatient E&M: 73728 Subs Hosp L3
--- NOTE | 2020-10-16 09:00 | MRI_ITS ---
STUDY: MRI BRAIN WITHOUT CONTRAST REASON FOR EXAM: Male, 65 years old. confusion,slurred speech, covid+,prev vertebral stenting, hx factor V leiden, fall, bruised forehead, left eye TECHNIQUE: Standardized multiplanar fat and water weighted pulse sequences were obtained. COMPARISON: Head CT dated October 15, 2020 FINDINGS: Multiple small to moderate size acute infarcts are present in the posterior aspects of the bilateral cerebellar lobes, left greater than right. Left vertebral artery stents noted. A tiny acute infarct is also present in the far anterior aspect and left side of the robinson. There is moderate cerebral atrophy with widening of the extra-axial spaces and ventricular dilatation. There are multiple white matter hyperintensities, distributed throughout the deep white matter tracts of the cerebral hemispheres, consistent with moderate chronic white matter ischemic changes. Normal T2* images of the brain without demonstrated susceptibility artifact. There is no demonstrated hemosiderin stain. Mild to moderate scalp swelling and hematoma formation is present over the anterior aspect of the left frontal bone. Normal bilateral basal ganglia. Normal thalami. There is no extra-axial fluid accumulation. Normal flow voids within the major intracranial circulation suggesting patency by spin echo criteria. Normal sella turcica, pituitary gland, infundibular stalk, optic chiasm and hypothalamus. Normal tectal plate and pineal gland. Normal midbrain and medulla. Normal basal cisterns. Normal bilateral temporal bones. Normal bilateral internal auditory canals. No demonstrated orbital abnormality, within the constraints of a routine brain study. Normal visualized paranasal sinuses. Normal calvarium and skull base. Normal visualized soft tissue structures. Normal visualized upper cervical spine. MRI/Brain without Contrast IMPRESSION: Posterior circulation/PICA territorial infarcts 1. Multiple small to moderate size acute infarcts are present in the posterior aspects of the bilateral cerebellar lobes, left greater than right. 2. A tiny acute infarct is also present in the far anterior aspect and left side of the robinson. N.B. : The above information has been verbally conveyed by Joon Hopper MD to Rosa Saleem RN, on 10/16/2020 21:51:27 (ET). Electronically Signed: Joon Hopper MD at 21:54 EST , Service support ,
--- NOTE | 2020-10-16 09:00 | MRI_ITS ---
STUDY: MRA NECK WITHOUT CONTRAST REASON FOR EXAM: Male, 65 years old. confusion,slurred speech, covid+,prev vertebral stenting, hx factor V leiden, fall, bruised forehead, left eye TECHNIQUE: Source images were obtained, MIPs were performed. The study was performed unenhanced. COMPARISON: MRI of the brain dated October 26, 2020 FINDINGS: RIGHT CAROTID ARTERIES: There is atherosclerotic plaque formation, but without a hemodynamically significant stenosis. There is mild atherosclerotic plaque formation with minimal narrowing of the right carotid bulb. There is moderate atherosclerotic plaque formation of the origin of the right internal carotid artery with an estimated stenosis of 50-69% stenosis. Normal visualized cervical portion of the right internal carotid artery. Normal origin of the right external carotid artery (ECA). LEFT CAROTID ARTERIES: Normal left common carotid artery (CCA). Normal left common carotid bulb. Normal origin of the left internal carotid (ICA) artery without a hemodynamically significant stenosis. Normal visualized cervical portion of the left internal carotid artery. Normal origin of the left external carotid artery (ECA). VERTEBRAL ARTERIES: Diffusely hypoplastic/narrowed right vertebral artery visualized. Most of the intracranial aspect of the right vertebral artery is not visualized. The left vertebral artery is not seen on this study. The patient has a known history of a left vertebral artery stent and it is possible that the stent results in artifact and limited imaging of the posterior circulation versus slow/poor flow of the posterior circulation. MRI/MRA Neck without Contrast IMPRESSION: 1. Mild to moderate atherosclerotic stenosis of the right internal carotid artery origin. This can be correlated with carotid ultrasound which may be more accurate in detection of true luminal stenosis. 2. Diffusely hypoplastic/narrowed right vertebral artery visualized. Most of the intracranial aspect of the right vertebral artery is not visualized. The left vertebral artery is not seen on this study. The patient has a known history of a left vertebral artery stent and it is possible that the stent results in artifact and limited imaging of the posterior circulation versus slow/poor flow of the posterior circulation. Electronically Signed: Joon Hopper MD at 22:04 EST , Service support ,
--- NOTE | 2020-10-16 09:00 | MRI_ITS ---
STUDY: MRA OF THE HEAD WITHOUT CONTRAST REASON FOR EXAM: Male, 65 years old. confusion,slurred speech, covid+,prev vertebral stenting, hx factor V leiden, fall, bruised forehead, left eye TECHNIQUE: 3-D [id number] (TOF) imaging was performed with MIPs. The study was performed unenhanced. COMPARISON: MRI of the brain dated October 16, 2020. FINDINGS: Normal bilateral petrous carotid arteries. Normal right cavernous carotid artery with a normal supraclinoid bifurcation. Normal left cavernous carotid artery with a normal supraclinoid bifurcation. Normal right A1 segments of the anterior cerebral artery. Normal left A1 segments of the anterior cerebral artery. Normal intact anterior communicating artery (ACOM). Normal bilateral A2 segments of the anterior cerebral arteries. Normal right M1 and M2 segments of the middle cerebral arteries, with a normal M1 bifurcation. Normal left M1 and M2 segments of the middle cerebral arteries, with a normal M1 bifurcation. Normal right posterior communicating artery (PCOM). Normal left posterior communicating artery (PCOM). Normal bilateral vertebral arteries. The proximal one third aspect down to the inferior aspect of the basilar artery is not visualized, in addition to poor visualization bilateral vertebral arteries. This could be related to slow flow or partial thrombus formation in these regions or artifact induced poor visualization due to the presence of the left vertebral artery stents. Barely visible bilateral superior cerebellar (SCA) arteries. Small hypoplastic bilateral P1, P2 and visualized P3 segments of the posterior cerebral arteries, left greater than right. MRI/MRA Head ONLY without Contrast IMPRESSION: Poor visualization of the posterior circulation 1. The proximal one third aspect down to the inferior aspect of the basilar artery is not visualized, in addition to poor visualization bilateral vertebral arteries. This could be related to slow flow or partial thrombus formation in these regions or artifact induced poor visualization due to the presence of the left vertebral artery stents. 2. Barely visible bilateral superior cerebellar (SCA) arteries. 3. Small hypoplastic bilateral P1, P2 and visualized P3 segments of the posterior cerebral arteries, left greater than right. 4. A standard CTA of the head can be obtained for greater evaluation of the intracranial arteries or a MRA with contrast. Electronically Signed: Joon Hopper MD at 21:59 EST , Service support ,
[2020-10-16] MEDS: 0.9% Normal Saline 1,000 ML 75 ML IV (09:46)
[2020-10-16] MEDS: Aspirin 300 MG Suppository RECTAL (09:47)
[2020-10-16] MEDS: SACUBITRIL/VALSARTAN 24/26 MG TABLET 0.5 EACH PO ×2 (11:36→20:42)
[2020-10-16] MEDS: TICAGRELOR 90 MG TABLET PO ×2 (11:36→20:42)
[2020-10-16] MEDS: Metoprolol(XL)Succ 25 MG Tablet PO (11:37)
[2020-10-16] MEDS: dexAMETHasone 4 MG Tablet 6 MG PO (11:39)
[2020-10-16] MEDS: guaiFENesin 1,200 MG Tablet 1200 MG PO ×2 (11:40→20:42)
[2020-10-16] MEDS: Ranolazine 500 MG Tablet 1000 MG PO ×2 (11:40→20:42)
[2020-10-16 12:26] LABS: Bedside Glucose 263 mg/dL (70-110)
--- NOTE | 2020-10-16 13:43 | CASEMGMT ---
SW did not complete a PHQ 9 with patient as he is A&O X1. Anjelica HERNANDEZ WRAPPER SORTER
--- NOTE | 2020-10-16 16:56 | PCM.PN.ID ---
Patient Problems: Active and Suspected Problems SARS (severe acute respiratory syndrome) (Acute) COVID-19 (Acute) Subjective: Sleeping in bed, no fever - Physical Exam Vitals/I&O's: Vital Signs Temp Pulse Resp BP Pulse Ox 98.5 F 66 18 132/91 H 95 10/16/20 16:00 10/16/20 16:00 10/16/20 16:00 10/16/20 16:00 10/16/20 16:00 Oxygen Flow Rate (L/min) 2 Oxygen Delivery Method Room Air Weight: 88.496 kg Body Mass Index (BMI) 30.2 Finger Stick Blood Glucose 270 Intake and Output for Last 24 Hours 10/14/20 10/15/20 10/16/20 23:59 23:59 23:59 Intake Total 916 / 916 1490.0 / 1490.0 1292.5 / 1292.5 Output Total 300 / 300 550 / 550 400 / 400 Balance 616 / 616 940.0 / 940.0 892.5 / 892.5 General: No apparent distress Lungs: Clear to auscultation, Diminished Cardiovascular: Regular rate, Regular Rhythm Abdomen: Soft, Non Tender, Non-Distended Skin: No rashes Laboratory Results 10/15/20 15:55: POC Glucose 304 H 10/15/20 18:02: POC Glucose 357 H 10/15/20 19:13: POC Glucose 270 H 10/15/20 21:01: POC Glucose 242 H 10/16/20 05:20: WBC 8.6, RBC 5.40, Hgb 16.3, Hct 49.2, MCV 91.1, MCH 30.2, MCHC 33.1, RDW Std Deviation 44.4 H, RDW Coeff of Chris 13.2, Plt Count 332, MPV 10.5 10/16/20 05:20: Sodium 142, Potassium 4.4, Chloride 109 H, Carbon Dioxide 25.0, Anion Gap 8, BUN 47 H, Creatinine 1.81 H, Estim Creat Clear Calc 39.36, Est GFR (MDRD) Af Amer 49 L, Est GFR (MDRD) Non-Af 40 L, BUN/Creatinine Ratio 26.0 H, Glucose 226 H, Calcium 8.7, Total Bilirubin 0.60, AST 15, ALT 16, Alkaline Phosphatase 99, Total Protein 6.3 L, Albumin 3.3, Globulin 3.0, Albumin/Globulin Ratio 1.1 10/16/20 06:09: POC Glucose 212 H 10/16/20 11:54: POC Glucose 263 H Current Medications Acetaminophen (Acetaminophen 325 Mg Tablet) 650 mg PO Q6H PRN PRN PRN Reason: Pain Score 1-10/Temp > 100.7 F Last Admin: 10/13/20 01:28 Dose: 650 mg Documented by: Aspirin (Aspirin 300 Mg Suppository) 300 mg RECTAL DAILY COUNT INCLUDES THE [facility] Last Admin: 10/16/20 09:47 Dose: 300 mg Documented by: Atorvastatin Calcium (Atorvastatin Calcium 80 Mg Tablet) 80 mg PO QHS COUNT INCLUDES THE [facility] Last Admin: 10/15/20 19:57 Dose: Not Given Documented by: Dexamethasone (Dexamethasone 4 Mg Tablet) 6 mg PO DAILY@0800 COUNT INCLUDES THE [facility] Stop: 10/22/20 08:01 Last Admin: 10/16/20 11:39 Dose: 6 mg Documented by: Dextrose (Dextrose 50%-Water 25 Gm/50 Ml Disp.Syrin) 0 gm IV X1 PRN; Protocol PRN Reason: Hypoglycemia Glucagon (Glucagon 1 Mg/Ml Syringe) 1 mg IM .X1 PRN PRN Reason: Hypoglycemia Guaifenesin (Guaifenesin 1,200 Mg Tablet) 1,200 mg PO BID COUNT INCLUDES THE [facility] Last Admin: 10/16/20 11:40 Dose: 1,200 mg Documented by: Remdesivir 100 mg/ Sodium (Chloride) 250 mls @ 125 mls/hr IV DAILY COUNT INCLUDES THE [facility] Stop: 10/17/20 11:59 Last Infusion: 10/16/20 14:11 Dose: Infused Documented by: Insulin Glargine (Insulin Glargine 100 Units/Ml Pen) 60 units SC 1800 COUNT INCLUDES THE [facility] Last Admin: 10/15/20 18:11 Dose: 30 u Documented by: Insulin Human Lispro (Insulin Lispro 100 Unit/Ml Insuln.Pen) 0 unit SC Q6 COUNT INCLUDES THE [facility]; Protocol Last Admin: 10/16/20 11:55 Dose: 3 u Documented by: Melatonin (Melatonin 3 Mg Tablet) 3 mg PO QHS PRN PRN PRN Reason: INSOMNIA Metoprolol Succinate (Metoprolol(Xl)Succ 25 Mg Tablet) 25 mg PO DAILY COUNT INCLUDES THE [facility] Last Admin: 10/16/20 11:37 Dose: 25 mg Documented by: Nitroglycerin (Nitroglycerin (Inpatient Use) 0.4 Mg Tab.Subl) 0.4 mg SUBLINGUAL Q5M PRN PRN Reason: CARDIAC/CHEST PAIN Ondansetron HCl (Ondansetron 4 Mg/2 Ml Vial) 4 mg IV Q8H PRN PRN PRN Reason: NAUSEA/VOMITING Potassium Chloride (Potassium Chloride 20 Meq Tablet) 20 meq PO DAILYCM COUNT INCLUDES THE [facility] Last Admin: 10/16/20 11:34 Dose: 20 meq Documented by: Ranolazine (Ranolazine 500 Mg Tablet) 1,000 mg PO BID COUNT INCLUDES THE [facility] Last Admin: 10/16/20 11:40 Dose: 1,000 mg Documented by: Sacubitril/Valsartan (Sacubitril/Valsartan 24/26 Mg Tablet) 0.5 each PO BID COUNT INCLUDES THE [facility] Last Admin: 10/16/20 11:36 Dose: 0.5 each Documented by: Sodium Chloride (0.9% Saline Lock 10 Ml Syringe) 10 - 40 ml IV UD PRN PRN Reason: SALINE FLUSH Last Admin: 10/13/20 23:05 Dose: 10 ml Documented by: Ticagrelor (Ticagrelor 90 Mg Tablet) 90 mg PO BID COUNT INCLUDES THE [facility] Last Admin: 10/16/20 11:36 Dose: 90 mg Documented by: Medical Necessity - Tobacco Use Smoking Status: Never smoker Tobacco Use: Non-smoker Route of nutrition/ use of supplements: [] Nutritional Intake: [] IV Site: [] Szymanski Catheter: [] - Assessment/Plan Antibiotics: [] Assessment/Plan: [] Active and Suspected Problems Elevated troponin I level (Acute) Dyspnea (Acute) SARS (severe acute respiratory syndrome) (Acute) COVID-19 (Acute) Heart failure (Acute) covid with hypoxia - dex, remdesivir. D-dimer at 0.8. O2 improved. Course complicated by new stroke 10/15. Will follow
[2020-10-16 18:00] LABS: Bedside Glucose 292 mg/dL (70-110)
--- NOTE | 2020-10-16 20:41 | NURSING ---
NIH was completed late d/t pt being off floor at MRI.
[2020-10-16] MEDS: Atorvastatin Calcium 80 MG Tablet PO (20:42)
[2020-10-16] MEDS: LORazepam 0.5 MG Tablet PO (23:30)
[2020-10-16] MEDS: MELATONIN 3 MG TABLET PO (23:31)
[2020-10-16 23:40] LABS: Bedside Glucose 304 mg/dL (70-110)
[2020-10-17] VITALS (14 sets, daily range): BP systolic 79–200; BP diastolic 57–178; PULSE 0–96; RESP 8–27; TEMP 36.1–36.6; O2SAT 92–100
--- NOTE | 2020-10-17 01:17 | NURSING ---
Pt daughter Kaia updated on pt condition, nursing maintenance mechanic supervisor approved for family to come see pt, Kaia said she will contact family and is planning to come to hospital.
[2020-10-17 02:51] LABS: Bedside Glucose 276 mg/dL (70-110)
--- NOTE | 2020-10-17 03:30 | NURSING ---
pt is not responsive to stimuli at this time, unable to complete NIH
[2020-10-17 05:56] LABS: Bedside Glucose 269 mg/dL (70-110)
--- NOTE | 2020-10-17 07:16 | TELEMED_ITS ---
[facility] has confirmed receipt of a request for visit. This document confirms receipt of the order initiating the consult. To find the results of the consultation, please view the patient's reports for the scanned Telemed Consult.
--- NOTE | 2020-10-17 07:30 | NURSING ---
Verified time of with Bossman Fletcher RN. Dr ochoa at bedside to pronounce.
--- NOTE | 2020-10-17 08:08 | PCM.DEATH ---
Preliminary Cause of Cardiopulmonary arrest. Date of Admission: 10/13/20 Date of : 10/17/20 - Principle Diagnosis #1 acute COVID-19/SARS/hypoxia. #2 acute non-ST elevation IN. #3 multiple bilateral cerebellar infarcts. #4 small acute infarct of the left side of the robinson. Problem List: Active and Suspected Problems #1 acute COVID-19/SARS/hypoxia. #2 acute non-STEMI. #3 multiple small bilateral cerebellar infarcts. #4 acute right thalamic lacunar infarct/small infarct of left robinson. #5 probable acute on chronic diastolic CHF. #6 type 2 diabetes mellitus. #7 CAD/ischemic cardiomyopathy. #8 paroxysmal atrial fibrillation. #9 factor V Leiden. Hospital Course This is a 65 years old male patient presented to the emergency room because of cough and shortness of breath and he was found to have acute COVID-19 pneumonia with hypoxia and also found to have acute non-ST elevation IN. Patient was started on treatment for COVID-19 with IV Decadron and remdesivir. He required some oxygen during this hospital stay of up to 2 L. Pneumococcal and Legionella antigen were negative. Respiratory panel for viruses were negative. He was found to have acute non-ST elevation IN which is attributed to demand ischemia in the setting of history of CAD. He was kept on aspirin, Brilinta, statins, metoprolol and Ranexa. Cardiology consulted and recommended medical treatment and there was no plan for cardiac catheterization or interventions. During this hospital stay, patient developed confusion and slurred speech. He had CT scan brain done and he was found to have acute right thalamic lacunar infarct. MRI brain was ordered and revealed multiple small bilateral cerebellar infarcts and acute tiny infarct of the left robinson. Patient was kept on aspirin and statins as well as Brilinta. He had no focal deficit on physical exam. Since admission, patient elected to go with DNR CCA, no intubation. He declined any type of resuscitation, CPR with chest compressions as well as intubation and mechanical ventilation. In the night of October 16, 2020 after patient came from [facility], he became less and less responsive, not following commands, started having frequent periods of apnea and agonal breathing. No CPR was initiated because patient was DNR CCA, no intubation. Shortly after, patient became bradycardic and his blood pressure started to drop. Patient's family were at the bedside in the morning of October 17, 2020. I went into the patient's room at around 7:45 AM, patient was not breathing, has no pulse and pupils are widely dilated and not reactive to light. Chest auscultation revealed no heartbeats. Patient has no breathing. Pupils are wide open and not reactive to light. announced at 7:50 AM on October 17, 2020. Inpatient E&M: [id number] Disch Hosp
--- NOTE | 2020-10-17 08:23 | NURSING ---
Confirmed no heartbeat by auscultation with Carroll Garcia RN. [id number]
== END 2020-10-17 07:50 | DRG 177 ==
LOC: ED 23:43 → PCU 10-13 00:15
PROVIDERS: Internal Medicine; Internal Medicine Infectious Disease; Admitting Provider Hospitalist; Emergency Provider Emergency Medicine; PCP Internal Medicine; Visit Provider Hospitalist
DX: U07.1 COVID-19 (principal); I21.A1 Myocardial infarction type 2; I63.81 Other cerebral infarction due to occlusion or stenosis of small artery; I50.33 Acute on chronic diastolic (congestive) heart failure; D68.51 Activated protein C resistance; N17.9 Acute kidney failure, unspecified; R09.02 Hypoxemia; I25.5 Ischemic cardiomyopathy; I25.10 Atherosclerotic heart disease of native coronary artery without angina pectoris; Z95.5 Presence of coronary angioplasty implant and graft; I48.0 Paroxysmal atrial fibrillation; I46.9 Cardiac arrest, cause unspecified; Z79.02 Long term (current) use of antithrombotics/antiplatelets; E11.22 Type 2 diabetes mellitus with diabetic chronic kidney disease; N18.30 Chronic kidney disease, stage 3 unspecified; Z79.4 Long term (current) use of insulin; Z79.899 Other long term (current) drug therapy; E86.0 Dehydration; E11.65 Type 2 diabetes mellitus with hyperglycemia; T38.0X5A Adverse effect of glucocorticoids and synthetic analogues, initial encounter; Z66 Do not resuscitate; R47.81 Slurred speech; S01.81XA Laceration without foreign body of other part of head, initial encounter; W19.XXXA Unspecified fall, initial encounter; Y93.89 Activity, other specified; Y92.230 Patient room in hospital as the place of occurrence of the external cause; Y99.8 Other external cause status
CPT/HCPCS: 36415; 70450; 70544; 70547; 70551; 71045; 74018; 80053; 82947; 82962; 83880; 84145; 84484; 85025; 85027; 85379; 85730; 87426; 87449; 87633; 87635; 92610; 93005; 97162; 97166; 99285; J7030; J7040; J7050; A4216; J1940; U0002; U0003